=== PATIENT | male | born 1950 | race Caucasian/White ===

== ENCOUNTER 2018-10-16 10:10 | Emergency (ER) | payer OTHER, MEDICARE ==
[2018-10-16] MEDS ORDERED: ASPIRIN 81 MG TABLET, CHEWABLE PO ONE ×2 (10:29→10:35)
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
[2018-10-16 11:18] LABS: ABSOLUTE EOSINOPHILS # (AUTO) 0.1 10^3/uL (0.0-0.6); ABSOLUTE LYMPHOCYTES (AUTO) 1.8 10^3/uL (0.5-4.7); ABSOLUTE MONOCYTES (AUTO) 0.6 10^3/uL (0.1-1.4); ABSOLUTE NEUT (AUTO) 3.7 10^3/uL (1.7-8.2); BASOPHILS % (AUTO) 0.4 % (0-2); EOSINOPHILS % (AUTO) 1.5 % (0-6); HEMATOCRIT 42.8 % (37.9-51.0); HEMOGLOBIN 14.2 g/dL (13.5-17.0); LYMPHOCYTES % (AUTO) 28.3 % (13-45); MEAN CORPUSCULAR HEMOGLOBIN 29.5 pg (27.0-33.4); MEAN CORPUSCULAR HGB CONC 33.2 g/dL (32.0-36.0); MEAN CORPUSCULAR VOLUME 89 fl (80-97); MONOCYTES % (AUTO) 9.7 % (3-13); PLATELET COUNT 196 10^3/uL (150-450); RED BLOOD COUNT 4.83 10^6/uL (4.35-5.55); RED CELL DISTRIBUTION WIDTH 13.2 % (11.5-14.0); SEGMENTED NEUTROPHILS % (AUTO) 60.1 % (42-78); TOTAL CELLS COUNTED % (AUTO) 100 %; WHITE BLOOD COUNT 6.2 10^3/uL (4.0-10.5)
[2018-10-16 11:24] LABS: APPEARANCE,URINE CLEAR; BILIRUBIN,URINE NEGATIVE (NEGATIVE); COLOR,URINE STRAW; GLUCOSE, URINE NEGATIVE (NEGATIVE); KETONES,URINE NEGATIVE (NEGATIVE); LEUKOCYTE ESTERASE,URINE NEGATIVE (NEGATIVE); NITRITE,URINE NEGATIVE (NEGATIVE); PROTEIN,URINE NEGATIVE (NEGATIVE); URINE SPECIFIC GRAVITY 1.004; UROBILINOGEN,URINE NEGATIVE mg/dL (<2.0)
[2018-10-16 11:31] LABS: ALANINE AMINOTRANSFERASE 28 U/L (21-72); ALBUMIN 3.8 g/dL (3.5-5.0); ALKALINE PHOSPHATASE 47 U/L (38-126); ANION GAP 8 (5-19); ASPARTATE AMINO TRANSFERASE 21 U/L (17-59); BILIRUBIN,DIRECT 0.3 mg/dL (0.0-0.4); BILIRUBIN,TOTAL 0.6 mg/dL (0.2-1.3); BLOOD UREA NITROGEN 15 mg/dL (7-20); CALCIUM 9.4 mg/dL (8.4-10.2); CARBON DIOXIDE 29 mmol/L (22-30); CHLORIDE 103 mmol/L (98-107); CREATINE KINASE 86 U/L (55-170); GLUCOSE 70 mg/dL (75-110); POTASSIUM 4.2 mmol/L (3.6-5.0); SODIUM 139.7 mmol/L (137-145); TOTAL PROTEIN 6.5 g/dL (6.3-8.2)
[2018-10-16 11:43] LABS: CREATINE KINASE MB 1.33 ng/mL (<4.55)
[2018-10-16 11:48] LABS: TROPONIN I 0.146 ng/mL
[2018-10-16] MEDS ORDERED: METOPROLOL SUCCINATE 25 MG TAB.SR.24H PO ONE (11:49)
[2018-10-16] MEDS ORDERED: ATORVASTATIN CALCIUM 40 MG TABLET PO ONE (11:51)
[2018-10-16] MEDS ORDERED: HEPARIN SOD (PORCINE) 1,000 UNIT/ML 10 ML VIAL IV ONE (11:52)
[2018-10-16] MEDS ORDERED: HEPARIN SODIUM,PORCINE/D5W 25,000 UNIT/250 ML RTUINJ IV PRN (11:52)
[2018-10-16] MEDS ORDERED: NITROGLYCERIN/D5W 50 MG/250 ML RTUINJ IV PRN (11:57)
[2018-10-16] MEDS ORDERED: NITROGLYCERIN 0.4 MG/TAB 25 TAB/BOTTLE SL PRN (11:57)
[2018-10-16 12:05] LABS: INTERNATIONAL RATION (INR) 0.96; PROTHROMBIN TIME 13.3 SEC (11.4-15.4)
[2018-10-16 12:06] LABS: PARTIAL THROMBOPLASTIN TIME 29.5 SEC (23.5-35.8)
--- NOTE | 2018-10-16 12:06 | RADIOLOGY REPORT (SQ) ---
EXAM DESCRIPTION: CHEST 2 VIEWS COMPLETED DATE/TIME: 10/16/2018 11:38 am REASON FOR STUDY: CHEST PAIN COMPARISON: 10/30/2009 and 02/25/2013 EXAM PARAMETERS: NUMBER OF VIEWS: two views TECHNIQUE: Digital Frontal and Lateral radiographic views of the chest acquired. RADIATION DOSE: NA LIMITATIONS: none FINDINGS: LUNGS AND PLEURA: No opacities, masses or pneumothorax. No pleural effusion. MEDIASTINUM AND HILAR STRUCTURES: No masses or contour abnormalities. HEART AND VASCULAR STRUCTURES: Stable appearance. Mild cardiomegaly. No evidence for failure. BONES: No acute findings. HARDWARE: None in the chest. OTHER: No other significant finding. IMPRESSION: 1. No significant interval changes since the prior examinations. Stable mild cardiomeg juan pablo. No acute findings. TECHNICAL DOCUMENTATION: JOB ID: [id number] [employer]- All Rights Reserved Reading location - IP/workstation name: [email or web address]
[2018-10-16] MEDS ORDERED: NORMAL SALINE 1000 ML 1,000 ML IV ONE (12:14)
[2018-10-16] MEDS ORDERED: MORPHINE SULFATE 10 MG/ML INJ IV ONE (17:38)
--- NOTE | 2018-10-16 17:45 | EKG REPORT ---
SEVERITY:- BORDERLINE ECG - SINUS RHYTHM BORDERLINE T WAVE ABNORMALITIES : Confirmed by: Madison Steinberg MD 16-Oct-2018 17:44:22
--- NOTE | 2018-10-16 17:45 | EKG REPORT ---
SEVERITY:- BORDERLINE ECG - SINUS RHYTHM BORDERLINE T ABNORMALITIES, LATERAL LEADS : Confirmed by: Madison Steinberg MD 16-Oct-2018 17:44:27
[2018-10-16 20:02] VITALS: BP 140/69
== END 2018-10-16 20:15 | disposition short-term general hospital (02) ==
LOC: ER 10:10
DX: I20.0 Unstable angina (principal); R07.9 Chest pain, unspecified; I10 Essential (primary) hypertension; E11.9 Type 2 diabetes mellitus without complications; G89.29 Other chronic pain; M54.9 Dorsalgia, unspecified; Z87.442 Personal history of urinary calculi
CPT/HCPCS: 93005; 96376; 99291; 96375; 96365; 96366; 96368; 36415; 82553; 82550; 85025; 85610; 85730; 80053; 81001; 84484; 83880; 71046; 93010; J1644 ×2; J2270; J3490; J7030

== ENCOUNTER 2019-06-06 14:10 | Inpatient (IN) | payer MEDICARE ==
[2019-06-06 14:47] LABS: ABSOLUTE EOSINOPHILS # (AUTO) 0.1 10^3/uL (0.0-0.6); ABSOLUTE LYMPHOCYTES (AUTO) 1.5 10^3/uL (0.5-4.7); ABSOLUTE MONOCYTES (AUTO) 0.7 10^3/uL (0.1-1.4); ABSOLUTE NEUT (AUTO) 6.4 10^3/uL (1.7-8.2); BASOPHILS % (AUTO) 0.3 % (0-2); EOSINOPHILS % (AUTO) 0.9 % (0-6); HEMATOCRIT 40.8 % (37.9-51.0); HEMOGLOBIN 13.6 g/dL (13.5-17.0); LYMPHOCYTES % (AUTO) 17.3 % (13-45); MEAN CORPUSCULAR HEMOGLOBIN 27.1 pg (27.0-33.4); MEAN CORPUSCULAR HGB CONC 33.2 g/dL (32.0-36.0); MEAN CORPUSCULAR VOLUME 82 fl (80-97); MONOCYTES % (AUTO) 8.3 % (3-13); PLATELET COUNT 227 10^3/uL (150-450); RED CELL DISTRIBUTION WIDTH 14.4 % (11.5-14.0); SEGMENTED NEUTROPHILS % (AUTO) 73.2 % (42-78); TOTAL CELLS COUNTED % (AUTO) 100 %; WHITE BLOOD COUNT 8.8 10^3/uL (4.0-10.5)
[2019-06-06 15:07] LABS: ALBUMIN 4.2 g/dL (3.5-5.0); ALKALINE PHOSPHATASE 62 U/L (38-126); ANION GAP 14 (5-19); ASPARTATE AMINO TRANSFERASE 29 U/L (17-59); BILIRUBIN,DIRECT 0.3 mg/dL (0.0-0.4); BILIRUBIN,TOTAL 0.5 mg/dL (0.2-1.3); BLOOD UREA NITROGEN 14 mg/dL (7-20); CALCIUM 9.8 mg/dL (8.4-10.2); CARBON DIOXIDE 27 mmol/L (22-30); CHLORIDE 98 mmol/L (98-107); CREATINE KINASE 39 U/L (55-170); GLUCOSE 108 mg/dL (75-110); POTASSIUM 3.9 mmol/L (3.6-5.0); TOTAL PROTEIN 7.4 g/dL (6.3-8.2)
[2019-06-06] MEDS ORDERED: ONDANSETRON HCL INJ/PF 4 MG/2 ML SDV IV ONE (15:16)
[2019-06-06] MEDS ORDERED: MORPHINE SULFATE 10 MG/ML INJ IV ONE ×2 (15:17→16:06)
[2019-06-06 15:18] LABS: CREATINE KINASE MB 0.54 ng/mL (<4.55)
[2019-06-06 15:20] LABS: TROPONIN I < 0.012 ng/mL
--- NOTE | 2019-06-06 15:37 | RADIOLOGY REPORT (SQ) ---
EXAM DESCRIPTION: CHEST SINGLE VIEW COMPLETED DATE/TIME: 06/06/2019 3:29 pm REASON FOR STUDY: cp COMPARISON: 10/16/2018 EXAM PARAMETERS: NUMBER OF VIEWS: One view. TECHNIQUE: Single frontal radiographic view of the chest acquired. RADIATION DOSE: NA LIMITATIONS: None. FINDINGS: LUNGS AND PLEURA: No opacities, masses or pneumothorax. No pleural effusion. MEDIASTINUM AND HILAR STRUCTURES: No masses. Contour normal. HEART AND VASCULAR STRUCTURES: Status post CABG. Aortic atherosclerosis. BONES: No acute findings. HARDWARE: None in the chest. OTHER: No other significant finding. IMPRESSION: No evidence of acute cardiopulmonary process. Status post CABG. TECHNICAL DOCUMENTATION: JOB ID: [id number] [employer]- All Rights Reserved Reading location - IP/workstation name: [email or web address]
--- NOTE | 2019-06-06 16:05 | ER Document Report ---
Entered by MARY GRACE GLORIA SCRIBE 06/06/19 1511 Acting as scribe for:CARMEN HEADLEY MD ED General - General Chief Complaint: Chest Pain Stated Complaint: CHEST PAIN Time Seen by Provider: 06/06/19 15:05 Primary Care Provider: CARIE HALL DO [Primary Care Provider] - Follow up as needed Mode of Arrival: Stretcher Information source: Patient, [facility] Records Notes: This 69 year old male patient with a history of extensive cardiac surgeries brought in by EMS presents to the ED today with complaints of upper abdominal pain with radiation to both sides of his back since 8-8:30 this morning. Patient reports that he had leonardo greens and potatoes for dinner last night. Patient denies chest pain at this time. Patient is on Percocet 10 mg up to 4 times daily, and Ridg[place] 10 mg twice daily on a chronic basis for his ankylosing spondylitis. TRAVEL OUTSIDE OF THE [place] IN LAST 30 DAYS: No - Related Data Allergies/Adverse Reactions: No Known Allergies Allergy (Verified 10/16/18 10:32) Past Medical History - General Information source: Patient - Social History Smoking Status: Never Smoker Cigarette use (# per day): No Chew tobacco use (# tins/day): No Smoking Education Provided: No Drug Abuse: None Family History: Reviewed & Not Pertinent Patient has suicidal ideation: No Patient has homicidal ideation: No - Past Medical History Cardiac Medical History: Reports: Hx Hypertension Renal/ Medical History: Reports: Hx Kidney Stones Musculoskeletal Medical History: Reports Other - Ankylosing spondylitis Past Surgical History: Reports: Hx Coronary Artery Bypass Graft - October 2018, Hx Coronary Stent - 3 stents placed on 04/11/19, Hx Orthopedic Surgery - back - Immunizations Hx Diphtheria, Pertussis, Tetanus Vaccination: Yes - Feb 2013 Hx Pneumococcal Vaccination: 03/12/14 Review of Systems - Review of Systems Constitutional: No symptoms reported EENT: No symptoms reported Cardiovascular: See HPI. denies: Chest pain Respiratory: No symptoms reported Gastrointestinal: See HPI, Abdominal pain Genitourinary: No symptoms reported Male Genitourinary: No symptoms reported Musculoskeletal: See HPI, Back pain Skin: No symptoms reported Hematologic/Lymphatic: No symptoms reported Neurological/Psychological: No symptoms reported -: Yes All other systems reviewed and negative Physical Exam - Vital signs Vitals: Pulse Ox 99 06/06/19 14:11 - General General appearance: Anxious, Other - Patient was pacing and unable to sit still or get comfortable - HEENT Head: Normocephalic, Atraumatic Eyes: Normal Pupils: PERRL - Respiratory Respiratory status: No respiratory distress Chest status: Nontender Breath sounds: Normal Chest palpation: Normal - Cardiovascular Rhythm: Regular Heart sounds: Normal auscultation Murmur: No - Abdominal Inspection: Obese, Other - Abdominal skin is cool to touch and mottled appea ring. Distension: No distension Bowel sounds: Hypoactive - decreased bowel sounds Tenderness: Tender - epigastric region and RUQ tenderness with palpation Organomegaly: No organomegaly - Back Back: Normal, Nontender - Extremities General upper extremity: Normal inspection General lower extremity: Normal inspection - Neurological Neuro grossly intact: Yes Cognition: Normal - Psychological Associated symptoms: Anxious - Skin Skin Temperature: Warm Skin Moisture: Dry Skin Color: Normal Course - Re-evaluation Re-evalutation: 06/06/19 16:28 The patient reports that the 2 doses of morphine 5 mg IV has not touched his pain. We will try giving him incremental doses of Dilaudid. 06/06/19 16:38 I reviewed the [place] narcotic database and found the patient takes Percocet 10 mg up to 4 times a day, and [place] 10mg twice daily on a chronic basis. He reports he is on chronic pain management for ankylosing spondylitis. - Vital Signs Vital signs: Temp Pulse Resp BP Pulse Ox 24 H 180/76 H 99 06/06/19 16:00 06/06/19 15:26 06/06/19 16:00 - Laboratory Result Diagrams: 06/06/19 13:40 06/06/19 13:40 Laboratory results interpreted by me: 06/06/19 06/06/19 13:40 13:40 RDW 14.4 H Creatine Kinase 39 L - Diagnostic Test Radiology reviewed: Image reviewed, Reports reviewed - Gallbladder ultrasound shows large gallstone with layering biliary sludge. There is no intrahepatic ductal dilatation, no gallbladder wall thickening, no pericholecystic fluid. Chest x-ray shows prior coronary artery bypass grafting, no acute changes. - EKG Interpretation by Me EKG shows normal: Sinus rhythm, [place], Intervals, QRS Complexes, ST-T Waves Rate: Normal - 51 Rhythm: NSR - Consults Dr. Chacko Time consulted: 06:15 Consulted provider: will come to ER Dr. Wall Time consulted: 06:17 Consulted provider: will come to ER Discharge - Discharge Clinical Impression: Right upper quadrant abdominal pain with calculus of gallbladder present on ultrasound Cholelithiasis Qualifiers: Cholelithiasis location: gallbladder Cholecystitis presence: without cholecystitis Biliary obstruction: without biliary obstruction Qualified Code(s): K80.20 - Calculus of gallbladder without cholecystitis without obstruction Coronary artery disease Qualifiers: Coronary Disease-Associated Artery/Lesion type: unspecified vessel or lesion type [place] vs. transplanted heart: [place] heart Associated angina: without angina Qualified Code(s): I25.10 - Atherosclerotic heart disease of [place] coronary artery without angina pectoris Hypertension Qualifiers: Hypertension type: essential hypertension Qualified Code(s): I10 - Essential (primary) hypertension Ankylosing spondylitis Qualifiers: Ankylosing spondylitis location: unspecified site of spine Qualified Code(s): M45.9 - Ankylosing spondylitis of unspecified sites in spine Chronic pain Qualifiers: Chronic pain type: chronic pain syndrome Qualified Code(s): G89.4 - Chronic pain syndrome Condition: Stable Disposition: ADMITTED INPATIENT Admitting Provider: Mae (Hospitalist) Unit Admitted: I[facility] Referrals: CARIE HALL DO [Primary Care Provider] - Follow up as needed Scribe Attestation: 06/06/19 16:41 I personally performed the services described in the documentation, reviewed and edited the documentation which was dictated to the scribe in my presence, and it accurately records my words and actions. I personally performed the services described in the documentation, reviewed and edited the documentation which was dictated to the scribe in my presence, and it accurately records my words and actions.
[2019-06-06] MEDS ORDERED: METOCLOPRAMIDE HCL INJ/PF 10 MG/2 ML SDV IV ONE (16:06)
--- NOTE | 2019-06-06 16:26 | EKG REPORT ---
SEVERITY:- NORMAL ECG - SINUS RHYTHM : Confirmed by: Madison Steinberg MD 06-Jun-2019 16:25:10
[2019-06-06] MEDS ORDERED: HYDROMORPHONE HCL INJ/PF 2 MG/ML AMPULE IV ONE ×2 (16:28→18:26)
[2019-06-06 16:29] LABS: C-REACTIVE PROTEIN < 5.0 mg/L (<10.0)
--- NOTE | 2019-06-06 17:36 | RADIOLOGY REPORT (SQ) ---
EXAM DESCRIPTION: U/S ABDOMEN LIMITED W/O DOP COMPLETED DATE/TIME: 06/06/2019 5:25 pm REASON FOR STUDY: RUQ abd pain COMPARISON: None. TECHNIQUE: Dynamic and static grayscale images acquired of the abdomen and recorded on PACS. Additio nal selected color Doppler and spectral images recorded. LIMITATIONS: None. FINDINGS: PANCREAS: Largely obscured by bowel gas. No gross abnormality. LIVER: No masses. Echotexture normal. LIVER VASCULATURE: Normal directional flow of the main portal vein and hepatic veins. GALLBLADDER: 3.6 cm shadowing gallstone. Layering biliary sludge. No wall thickening or pericholecy stic fluid. ULTRASOUND-DETECTED FLORES'S SIGN: Negative. INTRAHEPATIC DUCTS AND COMMON DUCT: CBD and intrahepatic ducts normal caliber. No filling defects. INFERIOR VENA CAVA: Normal flow. AORTA: No aneurysm of the proximal abdominal aorta. RIGHT KIDNEY: Normal size. Normal echogenicity. No solid or suspicious masses. No hydronephrosis. No calcifications. PERITONEAL AND RIGHT PLEURAL SPACE: No ascites or effusions. OTHER: No other significant findings. IMPRESSION: Cholelithiasis/biliary sludge without evidence of acute cholecystitis. TECHNICAL DOCUMENTATION: JOB ID: [id number] [employer]- All Rights Reserved Reading location - IP/workstation name: [email or web address]
--- NOTE | 2019-06-06 18:56 | PDOC CONSULTATION ---
Consultation Consult Date: 06/06/19 Attending physician:: CARMEN HEADLEY Provider Consulted: RILEY SANCHEZ Consult reason:: Symptomatic cholelithiasis History of Present Illness Admission Date/PCP: CARIE HALL DO History of Present Illness: KAVITHA CULP JR is a 69 year old male Who presents to the emergency department via ground rescue complaining of acute onset last night of abdominal pain. He ate leonardo greens for dinner. This is associated with back pain, radiating to both flanks and anorexia. No vomiting. He was seen in the emergency department where he was found to have acute substernal and epigastric chest pain. He ruled out for an acute myocardial event. He was tender in the right upper quadrant and had a gallbladder ultrasound which showed cholelithiasis. The patient remained hemodynamically stable. Internal medicine was consulted and patient was admitted to the hospitalist service. Surgery was consulted for management of gallstones. Past Medical History Past Medical History: History of stroke, history of myocardial infarction, coronary artery disease, ankylosing spondylitis, chronic pain syndrome, chronic narcotic dependency Cardiac Medical History: Reports: Hypertension Musculoskeltal Medical History: Reports: Arthritis, Other - Ankylosing spondylitis Past Surgical History Past Surgical History: Coronary artery bypass grafting, [facility] October 2018; coronary artery stent placement, Dr. Steen, [place], March 2019 Past Surgical History: Reports: Coronary Artery Bypass Graft - October 2018, Coronary Stent - 3 stents placed on 04/11/19, Orthopedic Surgery - back Social History Information Source: Patient Smoking Status: Never Smoker Electronic Cigarette use?: No Frequency of Alcohol Use: None Hx Recreational Drug Use: No Hx Prescription Drug Abuse: No Family History Family History: None, Reviewed & Not Pertinent Parental Family History Reviewed: No Children Family History Reviewed: No Sibling(s) Family History Reviewed.: No Medication/Allergy Allergies/Adverse Reactions: No Known Allergies Allergy (Verified 10/16/18 10:32) Review of Systems Constitutional: PRESENT: as per HPI Eyes: ABSENT: visual disturbances Ears: ABSENT: hearing changes Cardiovascular: PRESENT: as per HPI Gastrointestinal: PRESENT: as per HPI, other - Denies change in bowel habits Genitourinary: ABSENT: dysuria, hematuria Musculoskeletal: PRESENT: back pain Physical Exam Vital Signs: Temp Pulse Resp BP Pulse Ox 24 H 180/76 H 99 06/06/19 16:00 06/06/19 15:26 12/26/19 16:00 Intake & Output 06/05/19 06/06/19 06/07/19 06:59 06:59 06:59 Weight 86.5 kg General appearance: PRESENT: other - Anxious Head exam: PRESENT: normocephalic Eye exam: PRESENT: EOMI Mouth exam: PRESENT: dry mucosa Neck exam: PRESENT: full ROM Respiratory exam: PRESENT: rhonchi Cardiovascular exam: PRESENT: RRR Pulses: PRESENT: normal carotid pulses, normal radial pulses, normal femoral pulses, other - No edema GI/Abdominal exam: PRESENT: diminished bowel sounds, other - Scars chest and abdominal wall consistent with previous surgery; tender right upper quadrant with guarding to mild palpation Extremities exam: PRESENT: pedal edema Musculoskeletal exam: PRESENT: full ROM Neurological exam: PRESENT: oriented to person, oriented to place, oriented to time, oriented to situation Psychiatric exam: PRESENT: anxious Skin exam: PRESENT: dry Results Laboratory Results: 06/06/19 13:40 06/06/19 13:40 06/06/19 06/06/19 06/06/19 13:40 13:40 13:40 WBC 8.8 RBC 5.00 Hgb 13.6 Hct 40.8 MCV 82 MCH 27.1 MCHC 33.2 RDW 14.4 H Plt Count 227 Seg Neutrophils % 73.2 Sodium 138.9 Potassium 3.9 Chloride 98 Carbon Dioxide 27 Anion Gap 14 BUN 14 Creatinine 0.91 Est GFR ( Amer) > 60 Glucose 108 Calcium 9.8 Total Bilirubin 0.5 AST 29 Alkaline Phosphatase 62 C-Reactive Protein < 5.0 Total Protein 7.4 Albumin 4.2 Lipase 79.5 06/06/19 06/06/19 13:40 13:40 Creatine Kinase 39 L CK-MB (CK-2) 0.54 Troponin I < 0.012 Impressions: Chest X-Ray 06/06/19 00:00 IMPRESSION: No evidence of acute cardiopulmonary process. Status post CABG. Abdomen Ultrasound 06/06/19 15:17 IMPRESSION: Cholelithiasis/biliary sludge without evidence of acute cholecystitis. Assessment & Plan - Diagnosis (1) Cholelithiasis Qualifiers: Cholelithiasis location: gallbladder Cholecystitis presence: without cholecystitis Biliary obstruction: without biliary obstruction Qualified Code(s): K80.20 - Calculus of gallbladder without cholecystitis without obstruction Is this a current diagnosis for this admission?: Yes Plan: Impression: Symptomatic cholelithiasis with cholecystitis; no evidence of sepsis; Patient with multiple chronic medical problems, chronic pain syndrome, recent coronary artery stents on Plavix Recommendations: 1. We have advised admission to the medical service with surgery consulting. Patient will be kept on clear liquids, and Plavix held. 2. Patient's cardiac condition appears to be stable; we will have him evaluated and risk assessed for a perioperative myocardial events; this was explained to the patient and his family. 3. Recommend patient undergo interval cholecystectomy while hospitalized this admission by acute care surgeon collection development librarian this weekend. The above discussed with Dr. Wall (2) Anticoagulation adequate Is this a current diagnosis for this admission?: Yes (3) Ankylosing spondylitis Qualifiers: Ankylosing spondylitis location: unspecified site of spine Qualified Code(s ): M45.9 - Ankylosing spondylitis of unspecified sites in spine Is this a current diagnosis for this admission?: Yes (4) Chronic pain Qualifiers: Chronic pain type: chronic pain syndrome Qualified Code(s): G89.4 - Chronic pain syndrome Is this a current diagnosis for this admission?: Yes (5) Coronary artery disease Qualifiers: Coronary Disease-Associated Artery/Lesion type: unspecified vessel or lesion type [place] vs. transplanted heart: [place] heart Associated angina: without angina Qualified Code(s): I25.10 - Atherosclerotic heart disease of [place] coronary artery without angina pectoris (6) Hypertension Qualifiers: Hypertension type: essential hypertension Qualified Code(s): I10 - Essential (primary) hypertension Is this a current diagnosis for this admission?: Yes (7) Essential hypertension Is this a current diagnosis for this admission?: Yes (8) Osteoarthritis Is this a current diagnosis for this admission?: Yes - Time Time Spent: 50 to 70 Minutes Smoking Cessation Education: over 10 minutes Medications reviewed and adjusted accordingly: Yes Anticipated discharge: Home - Inpatient Certification Based on my medical assessment, after consideration of the patient's comorbidities, presenting symptoms, or acuity I expect that the services needed warrant INPATIENT care.: Yes I certify that my determination is in accordance with my understanding of Medicare's requirements for reasonable and necessary INPATIENT services [42 CFR 412.3e].: Yes Medical Necessity: Need For IV Fluids, Need for Pain Control, Need for IV Anti biotics, Need for Surgery
[2019-06-06] MEDS ORDERED: ACETAMINOPHEN 325 MG TABLET PO PRN (19:18)
[2019-06-06] MEDS ORDERED: MAG HYDROX/AL HYDROX/SIMETH SUSP 30 ML UDCUP PO PRN (19:18)
[2019-06-06] MEDS ORDERED: MAGNESIUM HYDROXIDE SUSP 30 ML UDCUP PO PRN (19:18)
[2019-06-06] MEDS ORDERED: NITROGLYCERIN 0.4 MG/TAB 25 TAB/BOTTLE SL PRN (19:25)
[2019-06-06] MEDS ORDERED: HYDROMORPHONE HCL INJ/PF 2 MG/ML AMPULE IV PRN (19:29)
--- NOTE | 2019-06-06 19:31 | PDOC H&P ---
History of Present Illness Admission Date/PCP: 06/06/19 18:42 CARIE HALL DO Patient complains of: Severe abdominal pain with nausea and vomiting History of Present Illness: KAVITHA CULP JR is a 69 year old male with a history of coronary artery disease. He had an acute myocardial infarction with subsequent CABG surgery at [facility] in October 2018. He recently had cardiac stenting April 11 at [facility]. He has a history of ankylosing spondylitis, hypertension, gastroesophageal reflux disease and prostatic hyperplasia. He states that at approximately 8:00 this morning he had acute onset of severe pain mostly in the epigastrium. It was associated with nausea and vomiting. It did not radiate. He states the pain remained severe throughout the day. He had no relief. Because of the pain, nausea and vomiting he proceeded to the emergency department. Imaging revealed a 3.6 cm cholelithiasis as well as sludge in the gallbladder. There was no gallbladder wall thickening, distention of the gallbladder or distention of the biliary ducts. Because of his cardiac issues and recent stenting he was referred to the hospital service for admission with general surgery consulting. Past Medical History Cardiac Medical History: Reports: Coronary Artery Disease, Hypertension Pulmonary Medical History: Denies: Asthma, Chronic Obstructive Pulmonary Disease (COPD) EENT Medical History: Denies: Cataracts, Eyes, Ears, Nose Neurological Medical History: Denies: Hemorrhagic CVA, Ischemic CVA, Multiple Sclerosis Endocrine Medical History: Denies: Diabetes Mellitus Type 2, Hypothyroidism Renal/ Medical History: Denies: Chronic Kidney Disease, Nephrolithiasis Malignancy Medical History: Reports: None GI Medical History: Reports: Gastroesophageal Reflux Disease Musculoskeltal Medical History: Reports: Arthritis, Other - Ankylosing spondylitis Skin Medical History: Denies: Eczema, Psoriasis Psychiatric Medical History: Denies: Alcohol Dependency, Dementia, Depression, General Anxiety Disorder, Substance Abuse, Tobacco Dependency Traumatic Medical History: Reports: None Hematology: Denies: Anemia, Bleeding Tendencies, Heparin Induced Thrombocytopenia Infectious Medical History: Reports: None Past Surgical History Past Surgical History: Reports: Coronary Artery Bypass Graft - October 2018, Coronary Stent - 3 stents placed on 04/11/19, Orthopedic Surgery - back Social History Information Source: Patient, Outside Facility Records Lives with: Family Smoking Status: Former Smoker Electronic Cigarette use?: No Frequency of Alcohol Use: None Hx Recreational Drug Use: No Hx Prescription Drug Abuse: No - Advance Directive Resuscitation Status: Full Code Surrogate healthcare decision maker:: Patient's is the primary decision maker Family History Family History: CAD, DM, Hypertension, Malignancy Parental Family History Reviewed: Yes Children Family History Reviewed: Yes Sibling(s) Family History Reviewed.: Yes Medication/Allergy Home Medications: Aspirin [Adult Low Dose Aspirin EC] 81 mg PO DAILY 06/06/19 Clopidogrel Bisulfate [Plavix 75 mg Tablet] 75 mg PO DAILY 06/06/19 Etanercept [Enbrel Sureclick] 50 mg SQ FR@1000 06/06/19 Hydrochlorothiazide [Hydrodiuril 12.5 mg Tablet] 12.5 mg PO DAILY 06/06/19 Hydrocodone Bit/Acetaminophen [Hydrocodon-Acetaminophn 10-325] 1 each PO Q12HP PRN 06/06/19 Isosorbide Mononitrate [Imdur 30 mg Tablet.er] 30 mg PO DAILY 06/06/19 Lisinopril [Prinivil 40 mg Tablet] 40 mg PO DAILY 06/06/19 Metoprolol Tartrate [Lopressor 25 mg Tablet] 25 mg PO Q12 06/06/19 Nitroglycerin [Nitrostat 0.4 mg (1/150 Gr) Tabs 25/Bottle] 1 tab SL Q5MP PRN 06/06/19 Omeprazole Magnesium [Prilosec Otc] 40 mg PO DAILY 06/06/19 Potassium Chloride [Klor-Con 10 Meq Tablet ER] 20 meq PO DAILY 06/06/19 Pravastatin Sodium [Pravachol] 40 mg PO DAILY 06/06/19 Tamsulosin HCl [Flomax] 0.4 mg PO DAILY 06/06/19 Trazodone HCl [Desyrel 50 mg Tablet] 50 mg PO QHS 06/06/19 Allergies/Adverse Reactions: No Known Allergies Allergy (Verified 10/16/18 10:32) Review of Systems All systems: reviewed and no additional remarkable complaints except as stated Gastrointestinal: PRESENT: abdominal pain, nausea, vomiting Genitourinary: PRESENT: nocturia Musculoskeletal: PRESENT: back pain Physical Exam Vital Signs: Temp Pulse Resp BP Pulse Ox 24 H 180/76 H 99 06/06/19 16:00 06/06/19 15:26 06/06/19 16:00 Intake & Output 06/05/19 06/06/19 06/07/19 06:59 06:59 06:59 Weight 86.5 kg General appearance: PRESENT: no acute distress, cooperative, well-developed, well-nourished Head exam: PRESENT: atraumatic, normocephalic Eye exam: PRESENT: conjunctiva pink, EOMI, PERRLA. ABSENT: scleral icterus Ear exam: PRESENT: normal external ear exam. ABSENT: bleeding, drainage Mouth exam: PRESENT: moist, tongue midline Teeth exam: ABSENT: poor dentation Throat exam: ABSENT: post pharyngeal erythema Neck exam: PRESENT: full ROM. ABSENT: carotid bruit, JVD, lymphadenopathy Respiratory exam: PRESENT: clear to auscultation betzaida, symmetrical, unlabored. ABSENT: accessory muscle use, rales, rhonchi, tachypnea, wheezes Cardiovascular exam: PRESENT: RRR, +S1, +S2, systolic murmur - 1-2 over 6 GI/Abdominal exam: PRESENT: diminished bowel sounds, soft, tenderness - Mostly in epigastric area. ABSENT: distended Rectal exam: PRESENT: deferred Gentrourinary exam: ABSENT: indwelling catheter Extremities exam: PRESENT: full ROM. ABSENT: joint swelling, pedal edema, tenderness Musculoskeletal exam: PRESENT: full ROM, normal inspection. ABSENT: deformity Neurological exam: PRESENT: alert, awake, oriented to person, oriented to place, oriented to time, oriented to situation, CN II-XII grossly intact. ABSENT: motor sensory deficit Psychiatric exam: PRESENT: appropriate affect, normal mood. ABSENT: agitated, anxious Focused psych exam: ABSENT: delusional, restlessness Skin exam: PRESENT: dry, normal color, warm. ABSENT: erythema, rash Results Laboratory Results: 06/06/19 13:40 06/06/19 13:40 06/06/19 06/06/19 06/06/19 13:40 13:40 13:40 WBC 8.8 RBC 5.00 Hgb 13.6 Hct 40.8 MCV 82 MCH 27.1 MCHC 33.2 RDW 14.4 H Plt Count 227 Seg Neutrophils % 73.2 Sodium 138.9 Potassium 3.9 Chloride 98 Carbon Dioxide 27 Anion Gap 14 BUN 14 Creatinine 0.91 Est GFR ( Amer) > 60 Glucose 108 Calcium 9.8 Total Bilirubin 0.5 AST 29 Alkaline Phosphatase 62 C-Reactive Protein < 5.0 Total Protein 7.4 Albumin 4.2 Lipase 79.5 06/06/19 06/06/19 13:40 13:40 Creatine Kinase 39 L CK-MB (CK-2) 0.54 Troponin I < 0.012 Impressions: Chest X-Ray 06/06/19 00:00 IMPRESSION: No evidence of acute cardiopulmonary process. Status post CABG. Abdomen Ultrasound 06/06/19 15:17 IMPRESSION: Cholelithiasis/biliary sludge without evidence of acute cholecystitis. Assessment and Plan - Diagnosis (1) Right upper quadrant abdominal pain with calculus of gallbladder present on ultrasound Is this a current diagnosis for this admission?: Yes Plan: 06/06/2019-patient presented with abdominal pain, nausea and vomiting. 3.6 cm gallstone identified by ultrasound. Surgery is consulting. Plan is for cholecystectomy. Dilaudid for pain. (2) Cholelithiasis Qualifiers: Cholelithiasis location: gallbladder Cholecystitis presence: without cholecystitis Biliary obstruction: without biliary obstruction Qualified Code(s): K80.20 - Calculus of gallbladder without cholecystitis without obstruction Is this a current diagnosis for this admission?: Yes Plan: 06/06/2019-planned for cholecystectomy. (3) Vomiting Qualifiers: Vomiting type: unspecified Vomiting Intractability: non-intractable Nausea presence: with nausea Qualified Code(s): R11.2 - Nausea with vomiting, unspecified Is this a current diagnosis for this admission?: Yes Plan: 06/06/2019-secondary to cholelithiasis. Resolved with pain medications and antiemetics. (4) Coronary artery disease Qualifiers: Coronary Disease-Associated Artery/Lesion type: [place] artery [place] vs. transplanted heart: [place] heart Associated angina: without angina Qualified Code(s): I25.10 - Atherosclerotic heart disease of [place] coronary artery without angina pectoris Is this a current diagnosis for this admission?: Yes Plan: 06/06/2019-patient had bypass surgery after myocardial infarction in October. He had a coronary artery stent placed in March. He has been stable and asymptomatic. He is slightly higher risk for surgery however with the recent stenting and cardiac catheterization he has no acute coronary symptoms at this time. We will continue his current medications (hydrochlorothiazide, Imdur, lisinopril, metoprolol and potassium) with the exception of Plavix. The patient is cleared for surgery. (5) Essential hypertension Is this a current diagnosis for this admission?: Yes Plan: 06/06/2019-as noted above we will continue his current medication regimen. His blood pressure was elevated and so I will give his hydrochlorothiazide and a small dose of lisinopril at this time and monitor him on telemetry. We will adjust his medications based on his vital signs. (6) Gastroesophageal reflux Qualifiers: Esophagitis presence: without esophagitis Qualified Code(s): K21.9 - Gastro-esophageal reflux disease without esophagitis Is this a current diagnosis for this admission?: Yes Plan: 06/06/2019-substitute pantoprazole for his omeprazole. (7) Benign prostatic hyperplasia with nocturia Is this a current diagnosis for this admission?: Yes Plan: 06/06/2019-continue Flomax 0.4 mg daily. (8) Ankylosing spondylitis Qualifiers: Ankylosing spondylitis location: unspecified site of spine Qualified Code(s): M45.9 - Ankylosing spondylitis of unspecified sites in spine Is this a current diagnosis for this admission?: Yes Plan: 06/06/2019-the patient takes Enbrel 50 mg by subcutaneous injection weekly on Mondays. Hopefully he will be home by Monday. As needed pain medications will be available. (9) Chronic pain Qualifiers: Chronic pain type: chronic pain syndrome Qualified Code(s): G89.4 - Chronic pain syndrome Is this a current diagnosis for this admission?: Yes Plan: 06/06/2019-the patient has chronic back pain. As needed analgesia will be available. This can be given for his abdominal pain or back pain. - Plan Summary Summary: 06/06/2019-patient presents with large (greater than 3 cm) gallstone. There does not appear to be any cholecystitis or obstruction. The gallstone was likely temporarily lodged as reflected by the patient's abdominal pain, nausea and vomiting. Dr. Chacko has seen the patient. We will stop his Plavix. We will keep him on a clear liquid diet. We will continue his medication regimen with the exception of Plavix. He will likely have a cholecystectomy on Monday or Monday. Because there is no evidence of acute cholecystitis I will not start antibiotics at this time. - Time Time Spent with patient: 35 or more minutes Medications reviewed and adjusted accordingly: Yes Anticipated discharge: Home - Inpatient Certification Based on my medical assessment, after consideration of the patient's comorbidities, presenting symptoms, or acuity I expect that the services needed warrant INPATIENT care.: Yes I certify that my determination is in accordance with my understanding of Medicare's requirements for reasonable and necessary INPATIENT services [42 CFR 412.3e].: Yes Medical Necessity: Need For Continuous Telemetry Monitoring, Need for Pain Control, Need for Surgery Post Hospital Care: 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
--- NOTE | 2019-06-06 19:57 | ADVANCED CARE ---
- Diagnosis (1) Right upper quadrant abdominal pain with calculus of gallbladder present on ultrasound Diagnosis Current: Yes (2) Cholelithiasis Diagnosis Current: Yes (3) Vomiting Diagnosis Current: Yes (4) Coronary artery disease Diagnosis Current: Yes (5) Essential hypertension Diagnosis Current: Yes (6) Gastroesophageal reflux Diagnosis Current: Yes (7) Benign prostatic hyperplasia with nocturia Diagnosis Current: Yes (8) Ankylosing spondylitis Diagnosis Current: Yes (9) Chronic pain Diagnosis Current: Yes Attendance: Discussion was had with the patient and his . Resuscitation Status: Full Code Discussion: In light of the patient's recent myocardial infarction with open heart surgery and need for a coronary stent within the last 2 months we discussed treatment options in the event of a catastrophic illness. I reviewed the living will form in the admissions packet. I pointed out the ability to designate decision- makers. I spent the majority of time reviewing the section where a patient can determine the extent of treatment desired before altering the treatment plan. The patient's went through this with her mother who from cancer. At this point the patient is a full code. I did asked them to discuss his wishes with regard to catastrophic illness. Care Planning Goals: To further discuss treatment planning in the event of a catastrophic illness. To document his wishes on a living will form. Document(s) Completed: None Time Spent: 20 minutes
[2019-06-06] MEDS ORDERED: HYDROCHLOROTHIAZIDE 12.5 MG TABLET PO ONE (20:00)
[2019-06-06] MEDS ORDERED: LISINOPRIL 10 MG TABLET PO ONE (20:00)
[2019-06-06 20:53] LABS: APPEARANCE,URINE CLEAR; BILIRUBIN,URINE NEGATIVE (NEGATIVE); COLOR,URINE YELLOW; GLUCOSE, URINE NEGATIVE (NEGATIVE); KETONES,URINE NEGATIVE (NEGATIVE); LEUKOCYTE ESTERASE,URINE NEGATIVE (NEGATIVE); NITRITE,URINE NEGATIVE (NEGATIVE); PROTEIN,URINE NEGATIVE (NEGATIVE); UROBILINOGEN,URINE NEGATIVE mg/dL (<2.0)
[2019-06-06] MEDS: HEPARIN SOD (PORCINE) 5,000 UNIT/ML 1 ML VIAL SUBCUT SCH (21:50)
[2019-06-06] MEDS: TRAZODONE HCL 50 MG TABLET PO SCH (21:50)
[2019-06-06] MEDS: ATORVASTATIN CALCIUM 40 MG TABLET PO SCH (21:50)
[2019-06-06] MEDS ORDERED: METOPROLOL TARTRATE 25 MG TABLET PO SCH (22:00)
[2019-06-06] MEDS: LORAZEPAM INJ 2 MG/1 ML VIAL IV PRN (22:09)
[2019-06-07] MEDS: HEPARIN SOD (PORCINE) 5,000 UNIT/ML 1 ML VIAL SUBCUT SCH ×2 (06:22→13:44)
[2019-06-07] MEDS: PANTOPRAZOLE SODIUM 40 MG TABLET.DR PO SCH (06:22)
[2019-06-07] MEDS ORDERED: SUCCINYLCHOLINE CHLORIDE INJ 200 MG/10 ML VIAL ONE (08:55)
[2019-06-07] MEDS ORDERED: ROCURONIUM BROMIDE INJ 50 MG/5 ML VIAL IV ONE (08:55)
[2019-06-07] MEDS ORDERED: METOPROLOL TARTRATE 25 MG TABLET PO SCH (09:13)
--- NOTE | 2019-06-07 09:18 | PDOC PROGRESS REPORT ---
Subjective Progress Note for:: 06/07/19 Subjective:: The patient is quite comfortable today. He is awake and alert. He has no complaints of abdominal pain, chest pain or difficulty breathing. He is tolerating clear liquid diet. Reason For Visit: CHOLELITHIASIS/CHOLECYSTITIS,CORONARY ARTERY DISEA Physical Exam Vital Signs: Temp Pulse Resp BP Pulse Ox 99.2 F 66 17 105/48 L 94 06/07/19 07:36 06/07/19 07:36 06/07/19 07:36 06/07/19 07:36 06/07/19 07:36 Intake & Output 06/06/19 06/07/19 06/08/19 06:59 06:59 06:59 Intake Total 150 Output Total 0 Balance 150 Weight 83.8 kg General appearance: PRESENT: no acute distress, cooperative, well-developed, well-nourished Head exam: PRESENT: atraumatic, normocephalic Eye exam: PRESENT: conjunctiva pink. ABSENT: scleral icterus Ear exam: PRESENT: normal external ear exam. ABSENT: bleeding, drainage Mouth exam: PRESENT: moist, tongue midline Neck exam: PRESENT: full ROM. ABSENT: JVD, tracheal deviation Respiratory exam: PRESENT: clear to auscultation betzaida, symmetrical, unlabored. ABSENT: accessory muscle use, rales, rhonchi, tachypnea, wheezes Cardiovascular exam: PRESENT: RRR, +S1, +S2, systolic murmur - 2/6. ABSENT: t achycardia GI/Abdominal exam: PRESENT: normal bowel sounds, soft. ABSENT: distended, guarding, tenderness Rectal exam: PRESENT: deferred Gentrourinary exam: ABSENT: indwelling catheter Extremities exam: ABSENT: joint swelling, pedal edema Musculoskeletal exam: PRESENT: ambulatory, full ROM, normal inspection Neurological exam: PRESENT: alert, awake, oriented to person, oriented to place, oriented to time, oriented to situation, CN II-XII grossly intact Psychiatric exam: PRESENT: appropriate affect, normal mood. ABSENT: agitated, anxious Focused psych exam: ABSENT: delusional, restlessness Skin exam: PRESENT: dry, normal color, warm. ABSENT: rash Results Laboratory Results: 06/06/19 13:40 06/06/19 13:40 06/06/19 06/06/19 06/06/19 13:40 13:40 13:40 WBC 8.8 RBC 5.00 Hgb 13.6 Hct 40.8 MCV 82 MCH 27.1 MCHC 33.2 RDW 14.4 H Plt Count 227 Seg Neutrophils % 73.2 Sodium 138.9 Potassium 3.9 Chloride 98 Carbon Dioxide 27 Anion Gap 14 BUN 14 Creatinine 0.91 Est GFR ( Amer) > 60 Glucose 108 Calcium 9.8 Total Bilirubin 0.5 AST 29 Alkaline Phosphatase 62 C-Reactive Protein < 5.0 Total Protein 7.4 Albumin 4.2 Lipase 79.5 Urine Color Urine Appearance Urine pH Ur Specific [place] Urine Protein Urine Glucose (UA) Urine Ketones Urine Blood Urine Nitrite Ur Leukocyte Esterase Urine WBC (Auto) Urine RBC (Auto) 06/06/19 20:29 WBC RBC Hgb Hct MCV MCH MCHC RDW Plt Count Seg Neutrophils % Sodium Potassium Chloride Carbon Dioxide Anion Gap BUN Creatinine Est GFR ( Amer) Glucose Calcium Total Bilirubin AST Alkaline Phosphatase C-Reactive Protein Total Protein Albumin Lipase Urine Color YELLOW Urine Appearance CLEAR Urine pH 5.0 Ur Specific [place] 1.010 Urine Protein NEGATIVE Urine Glucose (UA) NEGATIVE Urine Ketones NEGATIVE Urine Blood SMALL H Urine Nitrite NEGATIVE Ur Leukocyte Esterase NEGATIVE Urine WBC (Auto) 0 Urine RBC (Auto) 1 06/06/19 06/06/19 06/06/19 13:40 13:40 18:35 Creatine Kinase 39 L CK-MB (CK-2) 0.54 Troponin I < 0.012 < 0.012 Impressions: Chest X-Ray 06/06/19 00:00 IMPRESSION: No evidence of acute cardiopulmonary process. Status post CABG. Abdomen Ultrasound 06/06/19 15:17 IMPRESSION: Cholelithiasis/biliary sludge without evidence of acute cholecysti tis. Assessment and Plan - Diagnosis (1) Right upper quadrant abdominal pain with calculus of gallbladder present on ultrasound Is this a current diagnosis for this admission?: Yes Plan: 06/06/2019-patient presented with abdominal pain, nausea and vomiting. 3.6 cm gallstone identified by ultrasound. Surgery is consulting. Plan is for cholecystectomy. Dilaudid for pain. 06/07/2019-tolerating clear liquid diet. No more vomiting. The plan is for cholecystectomy tomorrow. (2) Cholelithiasis Qualifiers: Cholelithiasis location: gallbladder Cholecystitis presence: without cholecystitis Biliary obstruction: without biliary obstruction Qualified Code(s): K80.20 - Calculus of gallbladder without cholecystitis without obstruction Is this a current diagnosis for this admission?: Yes Plan: 06/06/2019-planned for cholecystectomy. 06/07/2019-plan as above. Should maintain low-fat diet for cardiac reasons as well as status post cholecystectomy. (3) Vomiting Qualifiers: Vomiting type: unspecified Vomiting Intractability: non-intractable Nausea presence: with nausea Qualified Code(s): R11.2 - Nausea with vomiting, unspecified Is this a current diagnosis for this admission?: Yes Plan: 06/06/2019-secondary to cholelithiasis. Resolved with pain medications and antiemetics. 06/07/2019-resolved at this time (4) Coronary artery disease Qualifiers: Coronary Disease-Associated Artery/Lesion type: [place] artery [place] vs. transplanted heart: [place] heart Associated angina: without angina Qualified Code(s): I25.10 - Atherosclerotic heart disease of [place] coronary artery without angina pectoris Is this a current diagnosis for this admission?: Yes Plan: 06/06/2019-patient had bypass surgery after myocardial infarction in October. He h ad a coronary artery stent placed in March. He has been stable and asymptomatic. He is slightly higher risk for surgery however with the recent stenting and cardiac catheterization he has no acute coronary symptoms at this time. We will continue his current medications (hydrochlorothiazide, Imdur, lisinopril, metoprolol and potassium) with the exception of Plavix. The patient is cleared for surgery. 06/07/2019-still holding Plavix. No symptoms of acute coronary syndrome at this time. Continue current management. (5) Essential hypertension Is this a current diagnosis for this admission?: Yes Plan: 06/06/2019-as noted above we will continue his current medication regimen. His blood pressure was elevated and so I will give his hydrochlorothiazide and a small dose of lisinopril at this time and monitor him on telemetry. We will adjust his medications based on his vital signs. 06/07/2019-continue current medications. Monitor for hypo-or hypertension and adjust medications accordingly. There are parameters on antihypertensive medications. (6) Gastroesophageal reflux Qualifiers: Esophagitis presence: without esophagitis Qualified Code(s): K21.9 - Gastro-esophageal reflux disease without esophagitis Is this a current diagnosis for this admission?: Yes Plan: 06/06/2019-substitute pantoprazole for his omeprazole. 06/07/2019-continue proton pump inhibitor. (7) Benign prostatic hyperplasia with nocturia Is this a current diagnosis for this admission?: Yes Plan: 06/06/2019-continue Flomax 0.4 mg daily. 06/07/2019-continue Flomax (8) Ankylosing spondylitis Qualifiers: Ankylosing spondylitis location: unspecified site of spine Qualified Code(s): M45.9 - Ankylosing spondylitis of unspecified sites in spine Is this a current diagnosis for this admission?: Yes Plan: 06/06/2019-the patient takes Enbrel 50 mg by subcutaneous injection weekly on Mondays. Hopefully he will be home by Monday. As needed pain medications will be available. 06/07/2019-resume Enbrel after discharge. Continue current pain management. We should avoid NSAIDs for cardiac reasons. (9) Chronic pain Qualifiers: Chronic pain type: chronic pain syndrome Qualified Code(s): G89.4 - Chronic pain syndrome Is this a current diagnosis for this admission?: Yes Plan: 06/06/2019-the patient has chronic back pain. As needed analgesia will be available. This can be given for his abdominal pain or back pain. [id number] this morning. Continue as needed medication. - Plan Summary Summary: 06/06/2019-patient presents with large (greater than 3 cm) gallstone. There does not appear to be any cholecystitis or obstruction. The gallstone was likely temporarily lodged as reflected by the patient's abdominal pain, nausea and vomiting. Dr. Chacko has seen the patient. We will stop his Plavix. We will keep him on a clear liquid diet. We will continue his medication regimen with the exception of Plavix. He will likely have a cholecystectomy on Monday or Monday. Because there is no evidence of acute cholecystitis I will not start antibiotics at this time. - Time Time Spent with patient: Less than 15 minutes Medications reviewed and adjusted accordingly: Yes Anticipated discharge: Home
[2019-06-07] MEDS: DOCUSATE SODIUM 100 MG CAPSULE PO SCH ×2 (09:40→17:23)
[2019-06-07] MEDS: ASPIRIN 81 MG TABLET, ENT COATED PO SCH (09:43)
[2019-06-07] MEDS: POTASSIUM CHLORIDE 10 MEQ TABLET.ER PO SCH (09:44)
[2019-06-07] MEDS: HYDROCHLOROTHIAZIDE 12.5 MG TABLET PO SCH (09:44)
[2019-06-07] MEDS ORDERED: ISOSORBIDE MONONITRATE 30 MG TAB.ER.24H PO SCH (10:00)
[2019-06-07] MEDS ORDERED: LISINOPRIL 10 MG TABLET PO SCH ×2 (10:00)
[2019-06-07] MEDS: NORMAL SALINE 1000 ML 1,000 ML IV PRN ×3 (12:32→22:23)
[2019-06-07] MEDS ORDERED: NORMAL SALINE 1000 ML 1,000 ML IV ONE (13:56)
--- NOTE | 2019-06-07 13:59 | Progress Note ---
Provider Note Provider Note: The paient is awaiting cholecystectomy.He had a coronary stent placed on after CABG in October. He has exhibited no evidence of acute coronary syndrome since his stent. Unfortunately the patient's medication list still listed lisinopril. Evidently his physician has told him to discontinue this medication. Therefore his blood pressure is low currently. He will get a liter of normal saline. Once his blood pressure is improved he is stable for his cholecystectomy and can proceed with the surgery.
--- NOTE | 2019-06-07 14:03 | PDOC PROGRESS REPORT ---
Subjective Progress Note for:: 06/07/19 Subjective:: Patient is comfortable, he reports mild right upper quadrant abdominal pain Reason For Visit: CHOLELITHIASIS/CHOLECYSTITIS,CORONARY ARTERY DISEA Physical Exam Vital Signs: Temp Pulse Resp BP Pulse Ox 98.7 F 67 17 84/45 L 94 06/07/19 11:19 06/07/19 11:19 06/07/19 11:19 06/07/19 13:57 06/07/19 11:19 Intake & Output 06/06/19 06/07/19 06/08/19 06:59 06:59 06:59 Intake Total 150 600 Output Total 0 Balance 150 600 Weight 83.8 kg General appearance: PRESENT: no acute distress, well-developed Respiratory exam: PRESENT: clear to auscultation betzaida Cardiovascular exam: PRESENT: RRR GI/Abdominal exam: PRESENT: hypoactive bowel sounds, soft, tenderness - Right upper quadrant abdominal pain Results Laboratory Results: 06/06/19 13:40 06/06/19 13:40 06/06/19 06/06/19 06/06/19 13:40 13:40 13:40 WBC 8.8 RBC 5.00 Hgb 13.6 Hct 40.8 MCV 82 MCH 27.1 MCHC 33.2 RDW 14.4 H Plt Count 227 Seg Neutrophils % 73.2 Sodium 138.9 Potassium 3.9 Chloride 98 Carbon Dioxide 27 Anion Gap 14 BUN 14 Creatinine 0.91 Est GFR ( Amer) > 60 Glucose 108 Calcium 9.8 Total Bilirubin 0.5 AST 29 Alkaline Phosphatase 62 C-Reactive Protein < 5.0 Total Protein 7.4 Albumin 4.2 Lipase 79.5 Urine Color Urine Appearance Urine pH Ur Specific [place] Urine Protein Urine Glucose (UA) Urine Ketones Urine Blood Urine Nitrite Ur Leukocyte Esterase Urine WBC (Auto) Urine RBC (Auto) 06/06/19 20:29 WBC RBC Hgb Hct MCV MCH MCHC RDW Plt Count Seg Neutrophils % Sodium Potassium Chloride Carbon Dioxide Anion Gap BUN Creatinine Est GFR ( Amer) Glucose Calcium Total Bilirubin AST Alkaline Phosphatase C-Reactive Protein Total Protein Albumin Lipase Urine Color YELLOW Urine Appearance CLEAR Urine pH 5.0 Ur Specific [place] 1.010 Urine Protein NEGATIVE Urine Glucose (UA) NEGATIVE Urine Ketones NEGATIVE Urine Blood SMALL H Urine Nitrite NEGATIVE Ur Leukocyte Esterase NEGATIVE Urine WBC (Auto) 0 Urine RBC (Auto) 1 12/06/06/19 06/06/19 13:40 13:40 18:35 Creatine Kinase 39 L CK-MB (CK-2) 0.54 Troponin I < 0.012 < 0.012 Impressions: Chest X-Ray 06/06/19 00:00 IMPRESSION: No evidence of acute cardiopulmonary process. Status post CABG. Abdomen Ultrasound 06/06/19 15:17 IMPRESSION: Cholelithiasis/biliary sludge without evidence of acute cholecystitis. Assessment & Plan - Diagnosis (2) Cholelithiasis Qualifiers: Cholelithiasis location: gallbladder Cholecystitis presence: without cholecystitis Biliary obstruction: without biliary obstruction Qualified Code(s): K80.20 - Calculus of gallbladder without cholecystitis without obstruction Is this a current diagnosis for this admission?: Yes - Time Time Spent with patient: 25-34 minutes - Plan Summary Plan Summary: Assessment: Symptomatic cholelithiasis Normal liver profile Physical exam significant for right upper quadrant abdominal pain Patient has a significant coronary artery disease history including CABG 9 months ago and a coronary artery stent 2 months ago He is currently on Plavix Plan: If the patient is cleared by the medical service, plan to perform laparoscopic cystectomy, possible open, possible cholangiogram this afternoon. Procedure, risks, benefits, complications, and alternatives explained to the patient and his family. Their questions were answered and he decided to proceed
[2019-06-07] MEDS ORDERED: CEFOXITIN 1 GM/D5W RTU 1 GM/50 ML RTUPB IV PRN (14:10)
[2019-06-07] MEDS ORDERED: CEFOXITIN INJ 1 GM VIAL IV ONE (16:00)
[2019-06-07] MEDS ORDERED: MORPHINE SULFATE 10 MG/ML INJ ONE ×2 (17:18→20:14)
[2019-06-07] MEDS ORDERED: MIDAZOLAM 2 MG/2 ML INJ ONE (17:18)
[2019-06-07] MEDS ORDERED: FENTANYL CITRATE INJ/PF 100 MCG/2 ML AMPUL ONE (17:18)
[2019-06-07] MEDS ORDERED: PROPOFOL INJ 200 MG/20 ML VIAL IV ONE (17:18)
[2019-06-07] MEDS: TAMSULOSIN HCL 0.4 MG CAP.SR.24H PO SCH (17:23)
[2019-06-07] MEDS ORDERED: BUPIVACAINE HCL 0.5 % INJ/PF 30 ML SDV ONE (17:46)
--- NOTE | 2019-06-07 17:59 | PDOC CONSULTATION ---
Consultation Consult Date: 06/09/19 Attending physician:: SYLVIA RUTH Provider Consulted: LENA CLARK History of Present Illness Admission Date/PCP: 06/06/19 18:42 CARIE HALL DO History of Present Illness: KAVITHA CULP JR is a 69 year old male Past medical history of coronary artery disease, acute myocardial infarction with subsequent CABG at [place] in October 2018, cardiac stenting April 11 at [facility], history of ankylosing spondylitis, hypertension, gastroesophageal flux disease, prostatic hyperplasia came to the hospital because epigastric pain was found to have cholelithiasis. He went for cholecystectomy. No chest pain. No shortness of breath. No orthopnea. Reasonably active person. Past Medical History Cardiac Medical History: Reports: Coronary Artery Disease, Hypertension Pulmonary Medical History: Denies: Asthma, Chronic Obstructive Pulmonary Disease (COPD) EENT Medical History: Denies: Cataracts, Eyes, Ears, Nose Neurological Medical History: Denies: Hemorrhagic CVA, Ischemic CVA, Multiple Sclerosis Endocrine Medical History: Denies: Diabetes Mellitus Type 2, Hypothyroidism Renal/ Medical History: Denies: Chronic Kidney Disease, Nephrolithiasis Malignancy Medical History: Reports: None GI Medical History: Reports: Gastroesophageal Reflux Disease Musculoskeltal Medical History: Reports: Arthritis, Other - Ankylosing spondylitis Skin Medical History: Denies: Eczema, Psoriasis Psychiatric Medical History: Denies: Alcohol Dependency, Dementia, Depression, General Anxiety Disorder, Substance Abuse, Tobacco Dependency Traumatic Medical History: Reports: None Hematology: Denies: Anemia, Bleeding Tendencies, Heparin Induced Thrombocytopenia Infectious Medical History: Reports: None Past Surgical History Past Surgical History: Reports: Coronary Artery Bypass Graft - October 2018, Coronary Stent - 3 stents placed on 04/11/19, Orthopedic Surgery - back Social History Lives with: Family Smoking Status: Former Smoker Electronic Cigarette use?: No Frequency of Alcohol Use: None Hx Recreational Drug Use: No Drugs: None Hx Prescription Drug Abuse: No - Advance Directive Resuscitation Status: Full Code Family History Family History: CAD, DM, Hypertension, Malignancy Parental Family History Reviewed: Yes Children Family History Reviewed: Yes Sibling(s) Family History Reviewed.: Yes Medication/Allergy Home Medications: Aspirin [Adult Low Dose Aspirin EC] 81 mg PO DAILY 06/06/19 Clopidogrel Bisulfate [Plavix 75 mg Tablet] 75 mg PO DAILY 06/06/19 Etanercept [Enbrel Sureclick] 50 mg SQ FR@1000 06/06/19 Hydrochlorothiazide [Hydrodiuril 12.5 mg Tablet] 12.5 mg PO DAILY 06/06/19 Hydrocodone Bit/Acetaminophen [Hydrocodon-Acetaminophn 10-325] 1 each PO Q12HP PRN 06/06/19 Isosorbide Mononitrate [Imdur 30 mg Tablet.er] 30 mg PO DAILY 06/06/19 Lisinopril [Prinivil 40 mg Tablet] 40 mg PO DAILY 06/06/19 Metoprolol Tartrate [Lopressor 25 mg Tablet] 25 mg PO Q12 06/06/19 Nitroglycerin [Nitrostat 0.4 mg (1/150 Gr) Tabs 25/Bottle] 1 tab SL Q5MP PRN 06/06/19 Omeprazole Magnesium [Prilosec Otc] 40 mg PO DAILY 06/06/19 Potassium Chloride [Klor-Con 10 Meq Tablet ER] 20 meq PO DAILY 06/06/19 Pravastatin Sodium [Pravachol] 40 mg PO DAILY 06/06/19 Tamsulosin HCl [Flomax] 0.4 mg PO DAILY 06/06/19 Trazodone HCl [Desyrel 50 mg Tablet] 50 mg PO QHS 06/06/19 Allergies/Adverse Reactions: No Known Allergies Allergy (Verified 10/16/18 10:32) Physical Exam Vital Signs: Temp Pulse Resp BP Pulse Ox 97.8 F 57 L 17 92/32 L 92 06/07/19 17:15 06/07/19 17:15 06/07/19 17:15 06/07/19 17:15 06/07/19 17:15 Intake & Output 06/06/19 06/07/19 06/08/19 06:59 06:59 06:59 Intake Total 150 773 Output Total 0 Balance 150 773 Weight 83.8 kg Results Laboratory Results: 06/06/19 13:40 06/06/19 13:40 06/06/19 20:29 Urine Color YELLOW Urine Appearance CLEAR Urine pH 5.0 Ur Specific [place] 1.010 Urine Protein NEGATIVE Urine Glucose (UA) NEGATIVE Urine Ketones NEGATIVE Urine Blood SMALL H Urine Nitrite NEGATIVE Ur Leukocyte Esterase NEGATIVE Urine WBC (Auto) 0 Urine RBC (Auto) 1 06/06/19 06/06/19 06/06/19 13:40 13:40 18:35 Creatine Kinase 39 L CK-MB (CK-2) 0.54 Troponin I < 0.012 < 0.012 Impressions: Chest X-Ray 06/06/19 00:00 IMPRESSION: No evidence of acute cardiopulmonary process. Status post CABG. Abdomen Ultrasound 06/06/19 15:17 IMPRESSION: Cholelithiasis/biliary sludge without evidence of acute cholecystitis. Assessment & Plan - Diagnosis (1) Coronary artery disease Qualifiers: Coronary Disease-Associated Artery/Lesion type: [place] artery [place] vs. transplanted heart: [place] heart Associated angina: without angina Qualified Code(s): I25.10 - Atherosclerotic heart disease of [place] coronary artery without angina pectoris Is this a current diagnosis for this admission?: Yes Plan: Continue current management. Restart home meds when possible. Restart dual antiplatelet therapy when possible. (2) Essential hypertension Is this a current diagnosis for this admission?: Yes Plan: Continue home meds.
[2019-06-07] MEDS ORDERED: BUPIVACAINE HCL 0.5 % INJ/PF 30 ML SDV INJ ONE (18:10)
[2019-06-07] MEDS ORDERED: FENTANYL CITRATE INJ/PF 100 MCG/2 ML AMPUL IV PRN ×3 (18:15)
[2019-06-07] MEDS ORDERED: MEPERIDINE HCL/PF INJ 25 MG/1 ML DISP.SYRIN IV PRN (18:15)
[2019-06-07] MEDS ORDERED: MORPHINE SULFATE 10 MG/ML INJ IV PRN (18:15)
[2019-06-07] MEDS ORDERED: DIPHENHYDRAMINE HCL 50 MG/ML VIAL IV PRN (18:15)
[2019-06-07] MEDS ORDERED: PROMETHAZINE HCL INJ 25 MG/1 ML VIAL IV PRN ×2 (18:15)
--- NOTE | 2019-06-07 20:25 | Operative Report ---
Operative Report DATE OF SURGERY: 06/07/19 PREOPERATIVE DIAGNOSIS: Somatic cholelithiasis POSTOPERATIVE DIAGNOSIS: Same OPERATION: Laparoscopic cholecystectomy SURGEON: EDY GUARDADO ANESTHESIA: Other - 20 mils 1% lidocaine TISSUE REMOVED OR ALTERED: Gallbladder COMPLICATIONS: None QUANTITATIVE BLOOD LOSS: 150 INTRAOPERATIVE FINDINGS: Large amount of adhesions between bowel and gallbladder. Moderate amount of diffuse oozing secondary to the use of Plavix PROCEDURE: The procedure was done in the operating room. The patient was placed in a supine position, general anesthesia induced by endotracheal intubation, the abdomen was prepped and draped in usual fashion. An incision was made just above the umbilicus with a #15 blade, the skin was tented with towel clips and a 5 mm port with Optiview adapter and scope was inserted through the abdominal wall into the peritoneal cavity. CO2 pneumoperitoneum was obtained, under direct visualization a 12 mm port was inserted in the epigastrium and to 5 mm ports were placed in the right lateral quadrant of the abdomen under direct vi sualization. The patient was placed in steep reverse Trendelenburg position, the right side was elevated, the gallbladder fundus was grasped and the gallbladder was elevated and retroflexed; the cystic neck was identified, grasped, and pulled anterior to the patient's right with exposure of the triangle of [place]. The dissection of the gallbladder revealed to be difficult due to the large amount of oozing from the gallbladder wall, gallbladder fossa, and divided adhesions between gallbladder and greater omentum. Due to the difficult visualization of the anatomy, a top to bottom dissection was began and by carefully dividing the attachments between gallbladder and liver mostly gallbladder was from the liver bed. The gallbladder was then grasped at the level of the fundus, retroflexed and the neck of the gallbladder was grasped anterior into the patient's right. Decreased review of safety was obtained by dividing the peritoneal attachments of the gallbladder body both medially and laterally with a hook cautery. When this was accomplished, the hook cautery dissection was continued toward the cystic neck. An opening was then obtained posterior to the cystic duct which was enlarged with a peanut dissector and with a right angle dissector. Once the critical view of safety was obtained, the cystic duct was carefully dissected with a hook cautery and a space was developed between the cystic duct and cystic artery with a right angle dissector. ] Both were then double clipped proximally and distally and divided with scissors. The gallbladder was dissected from the liver bed using hook cautery at high settings, and extracted from the peritoneal cavity with an Endobag through the epigastric port. The pneumoperitoneum was then re- established, the gallbladder fossa was examined and found to be free from active bleeding or bile staining. The right upper quadrant was then irrigated with approximately 3 L of normal saline until clear. A 19 mm [place] round Emeka drain was inserted through the epigastric port and extracted from the left upper quadrant abdominal port; it was placed in the gallbladder fossa under direct visualization and secured to the skin with a 2-0 nylon suture. The epigastric fascial defect was closed with a [id number] 0 Vicryl suture, placed with a fascia closure device under direct visualization, and left untied. After this was accomplished, gallbladder fossa was inspected, no active bleeding was noted, 10 mL of FloSeal from where applied to the gallbladder fossa followed by a large piece of Surgicel. All instruments were removed, the CO2 pneumoperitoneum was released, and all the ports were removed. The epigastric fascial defect was closed with the previously placed [id number] 0 Vicryl suture, all skin incisions were closed with a 4-0 PDS running subcuticular suture, and Dermabond was applied. The patient tolerated the procedure well, was extubated, and transferred to the recovery room in satisfactory conditions.
[2019-06-07] MEDS: FENTANYL CITRATE INJ/PF 100 MCG/2 ML AMPUL ONE ×2 (20:26→20:31)
[2019-06-07] MEDS ORDERED: ACETAMINOPHEN 1,000 MG/100 ML RTUPB IV ONE (20:40)
[2019-06-07] MEDS ORDERED: DOCUSATE SODIUM 100 MG CAPSULE PO SCH (21:00)
[2019-06-07] MEDS ORDERED: CEFOXITIN INJ 1 GM VIAL IV SCH (22:00)
[2019-06-07] MEDS: FAMOTIDINE INJ/PF 20 MG/2 ML SDV IV SCH (22:20)
[2019-06-07] MEDS: LORAZEPAM INJ 2 MG/1 ML VIAL IV PRN (22:20)
[2019-06-07] MEDS: ATORVASTATIN CALCIUM 40 MG TABLET PO SCH (22:20)
[2019-06-07] MEDS: TRAZODONE HCL 50 MG TABLET PO SCH (22:20)
[2019-06-07] MEDS: MORPHINE SULFATE 10 MG/ML INJ IV PRN (22:20)
[2019-06-07] MEDS: CEFOXITIN 1 GM/D5W RTU 1 GM/50 ML RTUPB IV SCH (22:21)
[2019-06-07 23:57] LABS: APPEARANCE,URINE CLEAR; BILIRUBIN,URINE NEGATIVE (NEGATIVE); COLOR,URINE YELLOW; GLUCOSE, URINE NEGATIVE (NEGATIVE); KETONES,URINE NEGATIVE (NEGATIVE); LEUKOCYTE ESTERASE,URINE NEGATIVE (NEGATIVE); NITRITE,URINE NEGATIVE (NEGATIVE); PROTEIN,URINE NEGATIVE (NEGATIVE); URINE SPECIFIC GRAVITY 1.012; UROBILINOGEN,URINE NEGATIVE mg/dL (<2.0)
[2019-06-08] MEDS: MORPHINE SULFATE 10 MG/ML INJ IV PRN ×2 (01:08→06:11)
[2019-06-08] MEDS: ONDANSETRON HCL INJ/PF 4 MG/2 ML SDV IV PRN ×2 (02:56→13:02)
[2019-06-08] MEDS: CEFOXITIN 1 GM/D5W RTU 1 GM/50 ML RTUPB IV SCH ×2 (06:11→13:02)
[2019-06-08] MEDS: PANTOPRAZOLE SODIUM 40 MG TABLET.DR PO SCH (06:12)
[2019-06-08 07:26] LABS: ABSOLUTE LYMPHOCYTES (AUTO) 1.3 10^3/uL (0.5-4.7); ABSOLUTE MONOCYTES (AUTO) 1.3 10^3/uL (0.1-1.4); ABSOLUTE NEUT (AUTO) 10.3 10^3/uL (1.7-8.2); HEMATOCRIT 37.1 % (37.9-51.0); HEMOGLOBIN 12.2 g/dL (13.5-17.0); LYMPHOCYTES % (AUTO) 9.8 % (13-45); MEAN CORPUSCULAR HEMOGLOBIN 26.9 pg (27.0-33.4); MEAN CORPUSCULAR HGB CONC 32.7 g/dL (32.0-36.0); MEAN CORPUSCULAR VOLUME 82 fl (80-97); MONOCYTES % (AUTO) 10.3 % (3-13); PLATELET COUNT 211 10^3/uL (150-450); RED BLOOD COUNT 4.52 10^6/uL (4.35-5.55); RED CELL DISTRIBUTION WIDTH 14.4 % (11.5-14.0); SEGMENTED NEUTROPHILS % (AUTO) 79.9 % (42-78); TOTAL CELLS COUNTED % (AUTO) 100 %; WHITE BLOOD COUNT 12.9 10^3/uL (4.0-10.5)
[2019-06-08 07:41] LABS: ALBUMIN 3.6 g/dL (3.5-5.0); ALKALINE PHOSPHATASE 49 U/L (38-126); ANION GAP 12 (5-19); ASPARTATE AMINO TRANSFERASE 31 U/L (17-59); BILIRUBIN,DIRECT 0.3 mg/dL (0.0-0.4); BILIRUBIN,TOTAL 0.9 mg/dL (0.2-1.3); BLOOD UREA NITROGEN 16 mg/dL (7-20); CALCIUM 8.2 mg/dL (8.4-10.2); CARBON DIOXIDE 28 mmol/L (22-30); CHLORIDE 96 mmol/L (98-107); GLUCOSE 138 mg/dL (75-110); POTASSIUM 4.2 mmol/L (3.6-5.0); TOTAL PROTEIN 6.1 g/dL (6.3-8.2)
[2019-06-08] MEDS: HYDROCHLOROTHIAZIDE 12.5 MG TABLET PO SCH (08:27)
[2019-06-08] MEDS: DOCUSATE SODIUM 100 MG CAPSULE PO SCH ×3 (10:13→18:26)
[2019-06-08] MEDS: ASPIRIN 81 MG TABLET, ENT COATED PO SCH (10:34)
[2019-06-08] MEDS: METOPROLOL TARTRATE 25 MG TABLET PO SCH (10:34)
[2019-06-08] MEDS: POTASSIUM CHLORIDE 10 MEQ TABLET.ER PO SCH (10:34)
[2019-06-08] MEDS: NORMAL SALINE 1000 ML 1,000 ML IV PRN ×2 (10:35→21:56)
[2019-06-08] MEDS: ISOSORBIDE MONONITRATE 30 MG TAB.ER.24H PO SCH (10:35)
[2019-06-08] MEDS: ENOXAPARIN SODIUM INJ 40 MG/0.4 ML DISP.SYRIN SUBCUT SCH (10:35)
[2019-06-08] MEDS: FAMOTIDINE INJ/PF 20 MG/2 ML SDV IV SCH ×2 (10:35→21:42)
[2019-06-08] MEDS ORDERED: GLUCAGON,HUMAN RECOMB 1 MG INJ SUBCUT PRN (13:30)
[2019-06-08] MEDS ORDERED: DEXTROSE 50%-WATER 25 GM/50 ML DISP.SYRIN IV PRN ×2 (13:30)
[2019-06-08] MEDS ORDERED: DEXTROSE 40% GEL 15 GM TUBE PO PRN ×2 (13:30)
--- NOTE | 2019-06-08 13:35 | PDOC PROGRESS REPORT ---
Subjective Progress Note for:: 06/08/19 Subjective:: The patient is complaining of pain localized in the right upper quadrant port insertion site and has nausea at this time Reason For Visit: CHOLELITHIASIS/CHOLECYSTITIS,CORONARY ARTERY DISEA Physical Exam Vital Signs: Temp Pulse Resp BP Pulse Ox 98.0 F 103 H 14 123/67 92 06/08/19 07:53 06/08/19 07:53 06/08/19 07:53 06/08/19 07:53 06/08/19 07:53 Intake & Output 06/07/19 06/08/19 06/09/19 06:59 06:59 06:59 Intake Total 150 4135 1000 Output Total 0 1655 Balance 150 2480 1000 Weight 83.8 kg 85 kg General appearance: PRESENT: no acute distress, obese, other - Slightly sleepy Respiratory exam: PRESENT: clear to auscultation betzaida Cardiovascular exam: PRESENT: RRR GI/Abdominal exam: PRESENT: distended - Slightly distended, normal bowel sounds, soft, tenderness - In the right upper quadrant at the port insertion site Neurological exam: PRESENT: alert, awake, oriented to person, oriented to place Results Laboratory Results: 06/08/19 07:11 06/08/19 07:11 06/07/19 06/08/19 06/08/19 23:35 07:11 07:11 WBC 12.9 H RBC 4.52 Hgb 12.2 L Hct 37.1 L MCV 82 MCH 26.9 L MCHC 32.7 RDW 14.4 H Plt Count 211 Seg Neutrophils % 79.9 H Sodium 135.8 L Potassium 4.2 Chloride 96 L Carbon Dioxide 28 Anion Gap 12 BUN 16 Creatinine 0.87 Est GFR ( Amer) > 60 Glucose 138 H Calcium 8.2 L Total Bilirubin 0.9 AST 31 Alkaline Phosphatase 49 Total Protein 6.1 L Albumin 3.6 Urine Color YELLOW Urine Appearance CLEAR Urine pH 5.0 Ur Specific [place] 1.012 Urine Protein NEGATIVE Urine Glucose (UA) NEGATIVE Urine Ketones NEGATIVE Urine Blood NEGATIVE Urine Nitrite NEGATIVE Ur Leukocyte Esterase NEGATIVE Urine WBC (Auto) 1 Urine RBC (Auto) 1 06/06/19 06/06/19 06/06/19 13:40 13:40 18:35 Creatine Kinase 39 L CK-MB (CK-2) 0.54 Troponin I < 0.012 < 0.012 Impressions: Chest X-Ray 06/06/19 00:00 IMPRESSION: No evidence of acute cardiopulmonary process. Status post CABG. Abdomen Ultrasound 06/06/19 15:17 IMPRESSION: Cholelithiasis/biliary sludge without evidence of acute cholec ystitis. Assessment & Plan - Diagnosis (2) Cholelithiasis Qualifiers: Cholelithiasis location: gallbladder Cholecystitis presence: without cholecystitis Biliary obstruction: without biliary obstruction Qualified Code(s): K80.20 - Calculus of gallbladder without cholecystitis without obstruction Is this a current diagnosis for this admission?: Yes - Time Time Spent with patient: 35 or more minutes - Plan Summary Plan Summary: Assessment: Postoperative day #1 following laparoscopic cholecystectomy for symptomatic cholelithiasis Vital signs stable, patient afebrile Good urine output Drain output about 150 mL for the past 24 hours Blood work within normal limits with normal liver profile The patient also complaining of nausea, shortness of breath, and right upper quadrant tenderness Physical exam shows her abdomen slightly distended and tenderness in the right upper quadrant area port insertion site Plan: Keep n.p.o. Continue IV fluids Check chest x-ray PA lateral
--- NOTE | 2019-06-08 13:54 | RADIOLOGY REPORT (SQ) ---
EXAM DESCRIPTION: CHEST 2 VIEWS COMPLETED DATE/TIME: 06/08/2019 1:46 pm REASON FOR STUDY: shortness of breath COMPARISON: 06/06/2019 TECHNIQUE: Frontal and lateral radiographic views of the chest acquired. NUMBER OF VIEWS: Two view. LIMITATIONS: None. FINDINGS: LUNGS AND PLEURA: Bibasilar diminished aeration compared to prior. Subsegmental atelectas is suspected predominantly although there is patchy airspace disease possibly reflecting left basilar pneumonia. No pneumothorax. MEDIASTINUM AND HILAR STRUCTURES: Stable contours. HEART AND VASCULAR STRUCTURES: Cardiomegaly. BONES: No acute findings. HARDWARE: None in the chest. OTHER: No other significant finding. IMPRESSION: Basilar volume loss with potential left lower lobe pneumonia. TECHNICAL DOCUMENTATION: JOB ID: [id number] [employer]- All Rights Reserved Reading location - IP/workstation name: [email or web address]
[2019-06-08] MEDS ORDERED: FENTANYL CITRATE INJ/PF 100 MCG/2 ML AMPUL IV ONE (15:35)
[2019-06-08] MEDS ORDERED: METOCLOPRAMIDE HCL INJ/PF 10 MG/2 ML SDV IV ONE (15:36)
--- NOTE | 2019-06-08 15:38 | PDOC PROGRESS REPORT ---
Subjective Progress Note for:: 06/08/19 Subjective:: The patient is feeling poorly today. He is having significant discomfort on his right side at the site of the surgical drain. He feels bloated and states that he has not passed any gas. He does have a sickly appearance. He also states that it hurts when he takes a deep breath. Again this is in the right upper quadrant area. Reason For Visit: CHOLELITHIASIS/CHOLECYSTITIS,CORONARY ARTERY DISEA Physical Exam Vital Signs: Temp Pulse Resp BP Pulse Ox 98.0 F 103 H 14 123/67 92 06/08/19 07:53 06/08/19 07:53 06/08/19 07:53 06/08/19 07:53 06/08/19 07:53 Intake & Output 06/07/19 06/08/19 06/09/19 06:59 06:59 06:59 Intake Total 150 4135 1000 Output Total 0 1655 Balance 150 2480 1000 Weight 83.8 kg 85 kg General appearance: PRESENT: cooperative, mild distress, well-developed Head exam: PRESENT: atraumatic, normocephalic Respiratory exam: PRESENT: rales - Bilaterally, symmetrical. ABSENT: prolonged expiratory phas, rhonchi, tachypnea, wheezes Cardiovascular exam: PRESENT: RRR, +S1, +S2 GI/Abdominal exam: PRESENT: normal bowel sounds, soft, tenderness - Right side at surgical drain site Neurological exam: PRESENT: alert, awake, oriented to person, oriented to place, oriented to time, oriented to situation, CN II-XII grossly intact Psychiatric exam: PRESENT: depressed - Depressed sickly affect. ABSENT: agitated, anxious Results Laboratory Results: 06/08/19 07:11 06/08/19 07:11 06/07/19 06/08/19 06/08/19 23:35 07:11 07:11 WBC 12.9 H RBC 4.52 Hgb 12.2 L Hct 37.1 L MCV 82 MCH 26.9 L MCHC 32.7 RDW 14.4 H Plt Count 211 Seg Neutrophils % 79.9 H Sodium 135.8 L Potassium 4.2 Chloride 96 L Carbon Dioxide 28 Anion Gap 12 BUN 16 Creatinine 0.87 Est GFR ( Amer) > 60 Glucose 138 H Calcium 8.2 L Total Bilirubin 0.9 AST 31 Alkaline Phosphatase 49 Total Protein 6.1 L Albumin 3.6 Urine Color YELLOW Urine Appearance CLEAR Urine pH 5.0 Ur Specific [place] 1.012 Urine Protein NEGATIVE Urine Glucose (UA) NEGATIVE Urine Ketones NEGATIVE Urine Blood NEGATIVE Urine Nitrite NEGATIVE Ur Leukocyte Esterase NEGATIVE Urine WBC (Auto) 1 Urine RBC (Auto) 1 06/06/19 06/06/19 06/06/19 13:40 13:40 18:35 Creatine Kinase 39 L CK-MB (CK-2) 0.54 Troponin I < 0.012 < 0.012 Impressions: Abdomen Ultrasound 06/06/19 15:17 IMPRESSION: Cholelithiasis/biliary sludge without evidence of acute cholecystitis. Chest X-Ray 06/08/19 00:00 IMPRESSION: Basilar volume loss with potential left lower lobe pneumonia. Assessment and Plan - Diagnosis (1) Right upper quadrant abdominal pain with calculus of gallbladder present on ultrasound Is this a current diagnosis for this admission?: Yes Plan: 06/06/2019-patient presented with abdominal pain, nausea and vomiting. 3.6 cm gallstone identified by ultrasound. Surgery is consulting. Plan is for cholecystectomy. Dilaudid for pain. 06/07/2019-tolerating clear liquid diet. No more vomiting. The plan is for cholecystectomy tomorrow. 06/08/2019-the patient underwent successful cholecyst ectomy yesterday. Surgery reports using as he was still likely experiencing antiplatelet activity of Plavix. The pain is localized to the surgical drain site. I will expand his analgesia. (2) Cholelithiasis Qualifiers: Cholelithiasis location: gallbladder Cholecystitis presence: without cholec ystitis Biliary obstruction: without biliary obstruction Qualified Code(s): K80.20 - Calculus of gallbladder without cholecystitis without obstruction Is this a current diagnosis for this admission?: Yes Plan: 06/06/2019-planned for cholecystectomy. 06/07/2019-plan as above. Should maintain low-fat diet for cardiac reasons as well as status post cholecystectomy. 06/08/2019-status post cholecystectomy (3) Vomiting Qualifiers: Vomiting type: unspecified Vomiting Intractability: non-intractable Nause a presence: with nausea Qualified Code(s): R11.2 - Nausea with vomiting, unspecified Is this a current diagnosis for this admission?: Yes Plan: 06/06/2019-secondary to cholelithiasis. Resolved with pain medications and antiemetics. 06/07/2019-resolved at this time 06/08/2019-resolved. There is a suspected left lower lobe pneumonia. This could have been due to aspiration from his many episodes of emesis prior to his hospital admission. (4) Coronary artery disease Qualifiers: Coronary Disease-Associated Artery/Lesion type: [place] artery [place] vs. transplanted heart: [place] heart Associated angina: without angina Qualified Code(s): I25.10 - Atherosclerotic heart disease of [place] coronary artery without angina pectoris Is this a current diagnosis for this admission?: Yes Plan: 06/06/2019-patient had bypass surgery after myocardial infarction in October. He had a coronary artery stent placed in March. He has been stable and asymptomatic. He is slightly higher risk for surgery however with the recent stenting and cardiac catheterization he has no acute coronary symptoms at this time. We will continue his current medications (hydrochlorothiazide, Imdur, lisinopril, metoprolol and potassium) with the exception of Plavix. The patient is cleared for surgery. 06/07/2019-still holding Plavix. No symptoms of acute coronary syndrome at this time. Continue current management. 06/08/2019-no acute coronary syndrome symptoms at this time. Continue to monitor. We will hold Plavix 1 more day due to the oozing of blood noted during surgery. (5) Essential hypertension Is this a current diagnosis for this admission?: Yes Plan: 06/06/2019-as noted above we will continue his current medication regimen. His blood pressure was elevated and so I will give his hydrochlorothiazide and a small dose of lisinopril at this time and monitor him on telemetry. We will adjust his medications based on his vital signs. 06/07/2019-continue current medications. Monitor for hypo-or hypertension and adjust medications accordingly. There are parameters on antihypertensive medications. 06/08/2019-with new information regarding the patient's management of his medications his blood pressure is much better. I will add back small doses of medication if required. (6) Gastroesophageal reflux Qualifiers: Esophagitis presence: without esophagitis Qualified Code(s): K21.9 - [place]-esophageal reflux disease without esophagitis Is this a current diagnosis for this admission?: Yes Plan: 06/06/2019-substitute pantoprazole for his omeprazole. 06/07/2019-continue proton pump inhibitor. 06/08/2019-continue Protonix (7) Benign prostatic hyperplasia with nocturia Is this a current diagnosis for this admission?: Yes Plan: 06/06/2019-continue Flomax 0.4 mg daily. 06/07/2019-continue Flomax 06/08/2019-Flomax (8) Ankylosing spondylitis Qualifiers: Ankylosing spondylitis location: unspecified site of spine Qualified Code(s): M45.9 - Ankylosing spondylitis of unspecified sites in spine Is this a current diagnosis for this admission?: Yes Plan: 06/06/2019-the patient takes Enbrel 50 mg by subcutaneous injection weekly on . Hopefully he will be home by Monday. As needed pain medications will be available. 06/07/2019-resume Enbrel after discharge. Continue current pain management. We should avoid NSAIDs for cardiac reasons. 06/08/2019-the ankylosing spondylitis is causing significant pain. Part of this is related to the bed and his immobility. I did increase his pain medications and have added Lidoderm patches. His states that he has used these in the past. (9) Chronic pain Qualifiers: Chronic pain type: chronic pain syndrome Qualified Code(s): G89.4 - Chronic pain syndrome Is this a current diagnosis for this admission?: Yes Plan: 06/06/2019-the patient has chronic back pain. As needed analgesia will be available. This can be given for his abdominal pain or back pain. [id number] this morning. Continue as needed medication. 06/08/2019-expand analgesia. - Plan Summary Summary: 06/06/2019-patient presents with large (greater than 3 cm) gallstone. There does not appear to be any cholecystitis or obstruction. The gallstone was likely temporarily lodged as reflected by the patient's abdominal pain, nausea and vomiting. Dr. Chacko has seen the patient. We will stop his Plavix. We will keep him on a clear liquid diet. We will continue his medication regimen with the exception of Plavix. He will likely have a cholecystectomy on Monday or Monday. Because there is no evidence of acute cholecystitis I will not start antibiotics at this time. - Time Time Spent with patient: 15-24 minutes Medications reviewed and adjusted accordingly: Yes Anticipated discharge: Home
[2019-06-08] MEDS: ACETAMINOPHEN 1,000 MG/100 ML RTUPB IV SCH ×2 (16:06→21:42)
[2019-06-08] MEDS: TAMSULOSIN HCL 0.4 MG CAP.SR.24H PO SCH (18:26)
[2019-06-08] MEDS: AMPICILLIN SODIUM/SULBACTAM NA 1.5 GM in NORMAL SALINE 50 ML IV SCH ×2 (18:26→23:54)
[2019-06-08] MEDS: TRAZODONE HCL 50 MG TABLET PO SCH (21:42)
[2019-06-08] MEDS: ATORVASTATIN CALCIUM 40 MG TABLET PO SCH (21:42)
[2019-06-08] MEDS: LORAZEPAM INJ 2 MG/1 ML VIAL IV PRN (21:51)
[2019-06-08] MEDS ORDERED: LISINOPRIL 10 MG TABLET PO SCH (22:00)
[2019-06-09] MEDS: ACETAMINOPHEN 1,000 MG/100 ML RTUPB IV SCH ×4 (04:02→22:22)
[2019-06-09] MEDS: AMPICILLIN SODIUM/SULBACTAM NA 1.5 GM in NORMAL SALINE 50 ML IV SCH ×4 (06:01→23:43)
[2019-06-09] MEDS: PANTOPRAZOLE SODIUM 40 MG TABLET.DR PO SCH (06:01)
[2019-06-09 06:24] LABS: ABSOLUTE LYMPHOCYTES (AUTO) 1.2 10^3/uL (0.5-4.7); ABSOLUTE MONOCYTES (AUTO) 1.3 10^3/uL (0.1-1.4); ABSOLUTE NEUT (AUTO) 8.3 10^3/uL (1.7-8.2); BASOPHILS % (AUTO) 0.2 % (0-2); EOSINOPHILS % (AUTO) 0.3 % (0-6); HEMATOCRIT 33.9 % (37.9-51.0); HEMOGLOBIN 11.3 g/dL (13.5-17.0); MEAN CORPUSCULAR HEMOGLOBIN 27.3 pg (27.0-33.4); MEAN CORPUSCULAR HGB CONC 33.3 g/dL (32.0-36.0); MEAN CORPUSCULAR VOLUME 82 fl (80-97); MONOCYTES % (AUTO) 11.7 % (3-13); PLATELET COUNT 216 10^3/uL (150-450); RED BLOOD COUNT 4.13 10^6/uL (4.35-5.55); RED CELL DISTRIBUTION WIDTH 14.1 % (11.5-14.0); SEGMENTED NEUTROPHILS % (AUTO) 76.8 % (42-78); TOTAL CELLS COUNTED % (AUTO) 100 %; WHITE BLOOD COUNT 10.8 10^3/uL (4.0-10.5)
[2019-06-09 06:42] LABS: ALBUMIN 3.2 g/dL (3.5-5.0); ALKALINE PHOSPHATASE 52 U/L (38-126); ANION GAP 8 (5-19); ASPARTATE AMINO TRANSFERASE 23 U/L (17-59); BILIRUBIN,DIRECT 0.1 mg/dL (0.0-0.4); BILIRUBIN,TOTAL 0.9 mg/dL (0.2-1.3); BLOOD UREA NITROGEN 9 mg/dL (7-20); CALCIUM 8.7 mg/dL (8.4-10.2); CARBON DIOXIDE 31 mmol/L (22-30); CHLORIDE 99 mmol/L (98-107); GLUCOSE 120 mg/dL (75-110); POTASSIUM 3.8 mmol/L (3.6-5.0); TOTAL PROTEIN 5.9 g/dL (6.3-8.2)
--- NOTE | 2019-06-09 07:49 | PDOC PROGRESS REPORT ---
Subjective Progress Note for:: 06/09/19 Subjective:: The patient feels much better today, no shortness of breath, the patient reports minimal right-sided abdominal pain at the port site Reason For Visit: CHOLELITHIASIS/CHOLECYSTITIS,CORONARY ARTERY DISEA Physical Exam Vital Signs: Temp Pulse Resp BP Pulse Ox 99.8 F 78 17 136/72 H 94 06/08/19 15:35 06/09/19 02:00 06/08/19 15:35 06/08/19 15:35 06/08/19 15:35 Intake & Output 06/08/19 06/09/19 06/10/19 06:59 06:59 06:59 Intake Total 4135 3380 50 Output Total 1655 1980 Balance 2480 1400 50 Weight 85 kg 85 kg General appearance: PRESENT: no acute distress Respiratory exam: PRESENT: clear to auscultation betzaida Cardiovascular exam: PRESENT: RRR GI/Abdominal exam: PRESENT: distended, hypoactive bowel sounds, soft - Minimal tenderness in the right upper quadrant at the port insertion site, no peritoneal signs, all incisions are clean, dry, and intact; right lateral quadrant abdominal drain filled with small amount of bilious material Results Laboratory Results: 06/09/19 06:10 06/09/19 06:10 06/08/19 06/09/19 06/09/19 07:11 06:10 06:10 WBC 10.8 H RBC 4.13 L Hgb 11.3 L Hct 33.9 L MCV 82 MCH 27.3 MCHC 33.3 RDW 14.1 H Plt Count 216 Seg Neutrophils % 76.8 Sodium 135.8 L 138.0 Potassium 4.2 3.8 Chloride 96 L 99 Carbon Dioxide 28 31 H Anion Gap 12 8 BUN 16 9 Creatinine 0.87 0.74 Est GFR ( Amer) > 60 > 60 Glucose 138 H 120 H Calcium 8.2 L 8.7 Total Bilirubin 0.9 0.9 AST 31 23 Alkaline Phosphatase 49 52 Total Protein 6.1 L 5.9 L Albumin 3.6 3.2 L 06/06/19 06/06/19 06/06/19 13:40 13:40 18:35 Creatine Kinase 39 L CK-MB (CK-2) 0.54 Troponin I < 0.012 < 0.012 Impressions: Abdomen Ultrasound 06/06/19 15:17 IMPRESSION: Cholelithiasis/biliary sludge without evidence of acute cholecystitis. Chest X-Ray 06/08/19 00:00 IMPRESSION: Basilar volume loss with potential left lower lobe pneumonia. Assessment & Plan - Diagnosis (2) Cholelithiasis Qualifiers: Cholelithiasis location: gallbladder Cholecystitis presence: without ch olecystitis Biliary obstruction: without biliary obstruction Qualified Code(s): K80.20 - Calculus of gallbladder without cholecystitis without obs truction Is this a current diagnosis for this admission?: Yes - Time Time Spent with patient: 25-34 minutes - Plan Summary Plan Summary: Assessment: Postoperative day #2 following laparoscopic cholecystectomy for symptomatic cholelithiasis Vital signs stable, patient afebrile Good urine output Output from TORRES drain is bilious decreasing amount approximately 80 mL for the past 24 hours (most likely, it is bile leaking from the gallbladder bed) CBC and CMP within normal limits The patient feels much better today with no shortness of breath and minimal right upper quadrant port site pain Chest x-ray done yesterday reveals a left lobar pneumonia, most likely preoperative the patient had multiple episodes of vomiting at home prior to coming to the hospital; Patient started on Unasyn by the hospitalist service to treat pneumonia Plan: Advance diet to full liquid diet Out of bed ambulation hourly Use incentive spirometer hourly HIDA scan to evaluate to the bile ducts
[2019-06-09] MEDS ORDERED: DEXTROSE 50%-WATER 25 GM/50 ML DISP.SYRIN IV PRN ×2 (07:58)
[2019-06-09] MEDS ORDERED: DEXTROSE 40% GEL 15 GM TUBE PO PRN ×2 (07:58)
[2019-06-09] MEDS ORDERED: GLUCAGON,HUMAN RECOMB 1 MG INJ SUBCUT PRN (07:58)
[2019-06-09] MEDS: HYDROCODONE/ACETAMINOPHEN 10-325 MG TABLET PO PRN ×3 (08:57→22:20)
[2019-06-09] MEDS: HYDROCHLOROTHIAZIDE 12.5 MG TABLET PO SCH (08:57)
[2019-06-09] MEDS: DOCUSATE SODIUM 100 MG CAPSULE PO SCH ×2 (11:17→17:56)
[2019-06-09] MEDS: ASPIRIN 81 MG TABLET, ENT COATED PO SCH (11:17)
[2019-06-09] MEDS: ISOSORBIDE MONONITRATE 30 MG TAB.ER.24H PO SCH (11:17)
[2019-06-09] MEDS: POTASSIUM CHLORIDE 10 MEQ TABLET.ER PO SCH (11:18)
[2019-06-09] MEDS: LIDOCAINE 5% (700 MG) TRANSDERMAL ADH..PATCH TP SCH (11:18)
[2019-06-09] MEDS: METOPROLOL TARTRATE 25 MG TABLET PO SCH (11:18)
[2019-06-09] MEDS: FAMOTIDINE 20 MG TABLET PO SCH ×2 (11:18→22:20)
[2019-06-09] MEDS: ENOXAPARIN SODIUM INJ 40 MG/0.4 ML DISP.SYRIN SUBCUT SCH (11:19)
--- NOTE | 2019-06-09 11:51 | PDOC PROGRESS REPORT ---
Subjective Progress Note for:: 06/09/19 Subjective:: Resting comfortably in bed. Abdomen still slightly bloated. TORRES drain remains in place. Patient reports passing some gas. He is drinking Sprite and informs me that he will be advanced to a full liquid diet. Reason For Visit: CHOLELITHIASIS/CHOLECYSTITIS,CORONARY ARTERY DISEA Physical Exam Vital Signs: Temp Pulse Resp BP Pulse Ox 98.2 F 72 16 130/55 H 97 06/09/19 07:39 06/09/19 07:39 06/09/19 07:39 06/09/19 07:39 06/09/19 07:39 Intake & Output 06/08/19 06/09/19 06/10/19 06:59 06:59 06:59 Intake Total 4135 3380 150 Output Total 1655 1980 Balance 2480 1400 150 Weight 85 kg 85 kg General appearance: PRESENT: cooperative, mild distress, well-developed Head exam: PRESENT: atraumatic, normocephalic Respiratory exam: PRESENT: clear to auscultation betzaida, symmetrical, unlabored. ABSENT: rales, rhonchi, tachypnea, wheezes Cardiovascular exam: PRESENT: RRR, +S1, +S2, systolic murmur GI/Abdominal exam: PRESENT: diminished bowel sounds, distended, soft, tenderness Rectal exam: PRESENT: deferred Extremities exam: ABSENT: pedal edema Musculoskeletal exam: PRESENT: ambulatory, full ROM, normal inspection. ABSENT: deformity Neurological exam: PRESENT: alert, awake, oriented to person, oriented to place, oriented to time, oriented to situation, CN II-XII grossly intact Psychiatric exam: PRESENT: flat affect. ABSENT: agitated, anxious Results Laboratory Results: 06/09/19 06:10 06/09/19 06:10 06/09/19 06/09/19 06:10 06:10 WBC 10.8 H RBC 4.13 L Hgb 11.3 L Hct 33.9 L MCV 82 MCH 27.3 MCHC 33.3 RDW 14.1 H Plt Count 216 Seg Neutrophils % 76.8 Sodium 138.0 Potassium 3.8 Chloride 99 Carbon Dioxide 31 H Anion Gap 8 BUN 9 Creatinine 0.74 Est GFR ( Amer) > 60 Glucose 120 H Calcium 8.7 Total Bilirubin 0.9 AST 23 Alkaline Phosphatase 52 Total Protein 5.9 L Albumin 3.2 L 06/06/19 06/06/19 06/06/19 13:40 13:40 18:35 Creatine Kinase 39 L CK-MB (CK-2) 0.54 Troponin I < 0.012 < 0.012 Impressions: Abdomen Ultrasound 06/06/19 15:17 IMPRESSION: Cholelithiasis/biliary sludge without evidence of acute cholecystitis. Chest X-Ray 06/08/19 00:00 IMPRESSION: Basilar volume loss with potential left lower lobe pneumonia. Assessment and Plan - Diagnosis (1) Right upper quadrant abdominal pain with calculus of gallbladder present on ultrasound Is this a current diagnosis for this admission?: Yes Plan: 06/06/2019-patient presented with abdominal pain, nausea and vomiting. 3.6 cm gallstone identified by ultrasound. Surgery is consulting. Plan is for cholecystectomy. Dilaudid for pain. 06/07/2019-tolerating clear liquid diet. No more vomiting. The plan is for cholecystectomy tomorrow. 06/08/2019-the patient underwent successful cholecyst ectomy yesterday. Surgery reports using as he was still likely experiencing antiplatelet activity of Plavix. The pain is localized to the surgical drain site. I will expand his analgesia. 06/09/2019-status post cholecystectomy. Surgical drain still in place. Surgery will be advancing diet. (2) Cholelithiasis Qualifiers: Cholelithiasis location: gallbladder Cholecystitis presence: without cholecystitis Biliary obstruction: without biliary obstruction Qualified Code(s): K80.20 - Calculus of gallbladder without cholecystitis without obstruction Is this a current diagnosis for this admission?: Yes Plan: 06/06/2019-planned for cholecystectomy. 06/07/2019-plan as above. Should maintain low-fat diet for cardiac reasons as well as status post cholecystectomy. 06/08/2019-status post cholecystectomy (3) Vomiting Qualifiers: Vomiting type: unspecified Vomiting Intractability: non-intractable Nausea presence: with nausea Qualified Code(s): R11.2 - Nausea with vomiting, unspecified Is this a current diagnosis for this admission?: Yes Plan: 06/06/2019-secondary to cholelithiasis. Resolved with pain medications and antiemetics. 06/07/2019-resolved at this time 06/08/2019-resolved. There is a suspected left lower lobe pneumonia. This could have been due to aspiration from his many episodes of emesis prior to his hospital admission. 06/09/2019-vomiting has resolved (4) Coronary artery disease Qualifiers: Coronary Disease-Associated Artery/Lesion type: [place] artery [place] vs. transplanted heart: [place] heart Associated angina: without angina Qualified Code(s): I25.10 - Atherosclerotic heart disease of [place] coronary artery without angina pectoris Is this a current diagnosis for this admission?: Yes Plan: 06/06/2019-patient had bypass surgery after myocardial infarction in October. He had a coronary artery stent placed in March. He has been stable and asymptomatic. He is slightly higher risk for surgery however with the recent stenting and cardiac catheterization he has no acute coronary symptoms at this time. We will continue his current medications (hydrochlorothiazide, Imdur, li sinopril, metoprolol and potassium) with the exception of Plavix. The patient is cleared for surgery. 06/07/2019-still holding Plavix. No symptoms of acute coronary syndrome at this time. Continue current management. 06/08/2019-no acute coronary syndrome symptoms at this time. Continue to monit or. We will hold Plavix 1 more day due to the oozing of blood noted during surgery. 06/09/2019-stable. I would start the patient back on his Plavix today or tomorrow. (5) Essential hypertension Is this a current diagnosis for this admission?: Yes Plan: 06/06/2019-as noted above we will continue his current medication regimen. His blood pressure was elevated and so I will give his hydrochlorothiazide and a small dose of lisinopril at this time and monitor him on telemetry. We will adjust his medications based on his vital signs. 06/07/2019-continue current medications. Monitor for hypo-or hypertension and adjust medications accordingly. There are parameters on antihypertensive medications. 06/08/2019-with new information regarding the patient's management of his medications his blood pressure is much better. I will add back small doses of medication if required. 06/09/2019-the medications have been adjusted based on new information from the family. Despite these adjustments his blood pressure does tend towards the low side. We may need to adjust again. (6) Gastroesophageal reflux Qualifiers: Esophagitis presence: without esophagitis Qualified Code(s): K21.9 - Gastro-esophageal reflux disease without esophagitis Is this a current diagnosis for this admission?: Yes Plan: 06/06/2019-substitute pantoprazole for his omeprazole. 06/07/2019-continue proton pump inhibitor. 06/08/2019-continue Protonix (7) Benign prostatic hyperplasia with nocturia Is this a current diagnosis for this admission?: Yes Plan: 06/06/2019-continue Flomax 0.4 mg daily. 06/07/2019-continue Flomax 06/08/2019-Flomax 06/09/2019-as above. No reports of symptoms at this time. (8) Ankylosing spondylitis Qualifiers: Ankylosing spondylitis location: unspecified site of spine Qualified Code(s): M45.9 - Ankylosing spondylitis of unspecified sites in spine Is this a current diagnosis for this admission?: Yes Plan: 06/06/2019-the patient takes Enbrel 50 mg by subcutaneous injection weekly on Mondays. Hopefully he will be home by Monday. As needed pain medications will be available. 06/07/2019-resume Enbrel after discharge. Continue current pain management. We should avoid NSAIDs for cardiac reasons. 06/08/2019-the ankylosing spondylitis is causing significant pain. Part of this is related to the bed and his immobility. I did increase his pain medications and have added Lidoderm patches. His states that he has used these in the past. 06/09/2019-still with great difficulty managing the pain from the ankylosing spondylitis. Some of this is related to his decreased activity while hospit alized. So far the addition of the Lidoderm patches has not provided significant relief. (9) Chronic pain Qualifiers: Chronic pain type: chronic pain syndrome Qualified Code(s): G89.4 - Chronic pain syndrome Is this a current diagnosis for this admission?: Yes Plan: 06/06/2019-the patient has chronic back pain. As needed analgesia will be available. This can be given for his abdominal pain or back pain. 06/[id number] this morning. Continue as needed medication. 06/08/2019-expand analgesia. 06/09/2019-continue current regimen (10) Pneumonia Qualifiers: Pneumonia type: aspiration pneumonia Aspiration pneumonia type: due to vomit Laterality: left Lung location: lower lobe of lung Qualified Code(s): J69.0 - Pneumonitis due to inhalation of food and vomit Is this a current diagnosis for this admission?: Yes Plan: 06/08/2019-there is a suspected pneumonia in the left lower lobe. The patient does exhibit an elevated white blood cell count. A very reasonable explanation would be aspiration during 1 of his multiple episodes of emesis prior to the hospitalization. I have changed his antibiotics to Unasyn as this will cover gram-positive, gram-negative and some anaerobic organisms. Continue to follow. 06/09/2019-the patient feels much better. His breathing is comfortable. He is on room air. Clinically he sounds better. He should take the full prescribed course of antibiotic therapy for his pneumonia. - Plan Summary Summary: 06/06/2019-patient presents with large (greater than 3 cm) gallstone. There does not appear to be any cholecystitis or obstruction. The gallstone was likely temporarily lodged as reflected by the patient's abdominal pain, nausea and vomiting. Dr. Chacko has seen the patient. We will stop his Plavix. We will keep him on a clear liquid diet. We will continue his medication regimen with the exception of Plavix. He will likely have a cholecystectomy on Monday or Monday. Because there is no evidence of acute cholecystitis I will not start antibiotics at this time. - Time Time Spent with patient: 15-24 minutes Medications reviewed and adjusted accordingly: Yes Anticipated discharge: Home
--- NOTE | 2019-06-09 14:21 | RADIOLOGY REPORT (SQ) ---
EXAM DESCRIPTION: NM HIDA SCAN COMPLETED DATE/TIME: 06/09/2019 2:06 pm REASON FOR STUDY: s/p lap catina PDD#2 bile in intraabdominal drain COMPARISON: None. RADIONUCLIDE AND DOSE: DOSAGE RADIONUCLIDE: 5.37 millicuries Tc99m Mebrofenin. DOSAGE MORPHINE: Not required. The route of agent administration: Intravenous TECHNIQUE: Serial imaging right upper quadrant up to 60 minutes following injection of radionuclide. Patient imaged AP and Right Lateral. LIMITATIONS: None. FINDINGS: LIVER: Normal visualization without areas of photopenia. INTRA-HEPATIC BILE DUCTS: Temporal visualization normal. No dilatation. COMMON BILE DUCT: Normal without dilatation or delayed visualization. GALLBLADDER: Surgically absent. No abnormal accumulations of radiopharmaceutical to suggest bile sylvia k. OTHER: Normal progression of activity throughout bowel with clearance of activity in the liver and bi le ducts. IMPRESSION: Negative for bile leak status post cholecystectomy. TECHNICAL DOCUMENTATION: JOB ID: [id number] [employer]- All Rights Reserved Reading location - IP/workstation name: [email or web address]
[2019-06-09] MEDS: TAMSULOSIN HCL 0.4 MG CAP.SR.24H PO SCH (17:56)
[2019-06-09] MEDS: NORMAL SALINE 1000 ML 1,000 ML IV PRN (17:59)
[2019-06-09] MEDS ORDERED: MAGNESIUM CITRATE 296 ML BOTTLE PO ONE (18:00)
[2019-06-09] MEDS: ONDANSETRON HCL INJ/PF 4 MG/2 ML SDV IV PRN (19:15)
[2019-06-09] MEDS: ATORVASTATIN CALCIUM 40 MG TABLET PO SCH (22:20)
[2019-06-09] MEDS: TRAZODONE HCL 50 MG TABLET PO SCH (22:20)
[2019-06-09] MEDS: LORAZEPAM INJ 2 MG/1 ML VIAL IV PRN (22:29)
[2019-06-09] MEDS ORDERED: GLYCERIN (ADULT) SUPP.RECT PR ONE ×2 (23:30→23:33)
[2019-06-10] MEDS: ACETAMINOPHEN 1,000 MG/100 ML RTUPB IV SCH ×2 (04:18→09:00)
[2019-06-10] MEDS: PANTOPRAZOLE SODIUM 40 MG TABLET.DR PO SCH (05:41)
[2019-06-10] MEDS: AMPICILLIN SODIUM/SULBACTAM NA 1.5 GM in NORMAL SALINE 50 ML IV SCH (05:42)
[2019-06-10 06:02] LABS: ABSOLUTE EOSINOPHILS # (AUTO) 0.1 10^3/uL (0.0-0.6); ABSOLUTE LYMPHOCYTES (AUTO) 1.7 10^3/uL (0.5-4.7); ABSOLUTE MONOCYTES (AUTO) 0.8 10^3/uL (0.1-1.4); ABSOLUTE NEUT (AUTO) 4.6 10^3/uL (1.7-8.2); BASOPHILS % (AUTO) 0.5 % (0-2); EOSINOPHILS % (AUTO) 0.9 % (0-6); HEMATOCRIT 34.2 % (37.9-51.0); HEMOGLOBIN 11.4 g/dL (13.5-17.0); LYMPHOCYTES % (AUTO) 23.7 % (13-45); MEAN CORPUSCULAR HEMOGLOBIN 27.3 pg (27.0-33.4); MEAN CORPUSCULAR HGB CONC 33.2 g/dL (32.0-36.0); MEAN CORPUSCULAR VOLUME 82 fl (80-97); MONOCYTES % (AUTO) 10.7 % (3-13); PLATELET COUNT 256 10^3/uL (150-450); RED BLOOD COUNT 4.16 10^6/uL (4.35-5.55); RED CELL DISTRIBUTION WIDTH 14.3 % (11.5-14.0); SEGMENTED NEUTROPHILS % (AUTO) 64.2 % (42-78); TOTAL CELLS COUNTED % (AUTO) 100 %; WHITE BLOOD COUNT 7.2 10^3/uL (4.0-10.5)
[2019-06-10 06:17] LABS: ALBUMIN 3.2 g/dL (3.5-5.0); ALKALINE PHOSPHATASE 57 U/L (38-126); ANION GAP 10 (5-19); ASPARTATE AMINO TRANSFERASE 26 U/L (17-59); BILIRUBIN,DIRECT 0.3 mg/dL (0.0-0.4); BILIRUBIN,TOTAL 0.6 mg/dL (0.2-1.3); BLOOD UREA NITROGEN 11 mg/dL (7-20); CALCIUM 8.7 mg/dL (8.4-10.2); CARBON DIOXIDE 31 mmol/L (22-30); CHLORIDE 98 mmol/L (98-107); GLUCOSE 90 mg/dL (75-110); POTASSIUM 3.9 mmol/L (3.6-5.0); TOTAL PROTEIN 6.2 g/dL (6.3-8.2)
[2019-06-10] MEDS: FAMOTIDINE 20 MG TABLET PO SCH (09:03)
[2019-06-10] MEDS: METOPROLOL TARTRATE 25 MG TABLET PO SCH (09:03)
[2019-06-10] MEDS: POTASSIUM CHLORIDE 10 MEQ TABLET.ER PO SCH (09:03)
[2019-06-10] MEDS: HYDROCHLOROTHIAZIDE 12.5 MG TABLET PO SCH (09:03)
[2019-06-10] MEDS: DOCUSATE SODIUM 100 MG CAPSULE PO SCH (09:04)
[2019-06-10] MEDS: ASPIRIN 81 MG TABLET, ENT COATED PO SCH (09:04)
[2019-06-10] MEDS: ENOXAPARIN SODIUM INJ 40 MG/0.4 ML DISP.SYRIN SUBCUT SCH (09:04)
[2019-06-10] MEDS: ISOSORBIDE MONONITRATE 30 MG TAB.ER.24H PO SCH (09:04)
[2019-06-10] MEDS: NORMAL SALINE 1000 ML 1,000 ML IV PRN (09:05)
[2019-06-10] MEDS: LIDOCAINE 5% (700 MG) TRANSDERMAL ADH..PATCH TP SCH (09:05)
--- NOTE | 2019-06-10 12:03 | PDOC PROGRESS REPORT ---
Subjective Progress Note for:: 06/10/19 Reason For Visit: CHOLELITHIASIS/CHOLECYSTITIS,CORONARY ARTERY DISEA Feeling well, no complaints, tolerating a diet. Wants drain out. Physical Exam Vital Signs: Temp Pulse Resp BP Pulse Ox 98.9 F 83 18 102/43 L 94 06/10/19 07:55 06/10/19 07:55 06/10/19 07:55 06/10/19 07:55 06/10/19 07:55 Intake & Output 06/09/19 06/10/19 06/11/19 06:59 06:59 06:59 Intake Total 3380 3290 Output Total 1980 200 10 Balance 1400 3090 -10 Weight 85 kg 84.7 kg General appearance: PRESENT: no acute distress GI/Abdominal exam: PRESENT: other - Abdomen soft, operative incision healing satisfactory. Abdominal drain removed uneventfully. Results Laboratory Results: 06/10/19 04:39 06/10/19 04:39 06/10/19 06/10/19 04:39 04:39 WBC 7.2 RBC 4.16 L Hgb 11.4 L Hct 34.2 L MCV 82 MCH 27.3 MCHC 33.2 RDW 14.3 H Plt Count 256 Seg Neutrophils % 64.2 Sodium 139.4 Potassium 3.9 Chloride 98 Carbon Dioxide 31 H Anion Gap 10 BUN 11 Creatinine 0.82 Est GFR ( Amer) > 60 Glucose 90 Calcium 8.7 Total Bilirubin 0.6 AST 26 Alkaline Phosphatase 57 Total Protein 6.2 L Albumin 3.2 L 06/06/19 06/06/19 06/06/19 13:40 13:40 18:35 Creatine Kinase 39 L CK-MB (CK-2) 0.54 Troponin I < 0.012 < 0.012 Impressions: Abdomen Ultrasound 06/06/19 15:17 IMPRESSION: Cholelithiasis/biliary sludge without evidence of acute cholecystitis. Chest X-Ray 06/08/19 00:00 IMPRESSION: Basilar volume loss with potential left lower lobe pneumonia. Hepatobiliary Scan Nuclear Medicine 06/09/19 00:00 IMPRESSION: Negative for bile leak status post cholecystectomy. Assessment & Plan - Diagnosis (1) Cholelithiasis Qualifiers: Cholelithiasis location: gallbladder Cholecystitis presence: without cholecystitis Biliary obstruction: without biliary obstruction Qualified Code(s): K80.20 - Calculus of gallbladder without cholecystitis without obstruction Is this a current diagnosis for this admission?: Yes Plan: Impression: Patient is doing well 3 days status post laparoscopic cholecystectomy drain placement. Drain removed. No complications. Tolerating a diet. Recommendations: 1. Patient may be discharged home from a surgical standpoint; This was discussed with Hetal Hogue 2. Patient follow-up with [facility] in 1 to 2 weeks; he may take a Tylenol Motrin as needed pain. 3. Surgery will sign off at this time; reconsult if clinically indicated. (2) Anticoagulation adequate Is this a current diagnosis for this admission?: Yes (3) Ankylosing spondylitis Qualifiers: Ankylosing spondylitis location: unspecified site of spine Qualified Code(s): M45.9 - Ankylosing spondylitis of unspecified sites in spine Is this a current diagnosis for this admission?: Yes (4) Chronic pain Qualifiers: Chronic pain type: chronic pain syndrome Qualified Code(s): G89.4 - Chronic pain syndrome Is this a current diagnosis for this admission?: Yes (5) Coronary artery disease Qualifiers: Coronary Disease-Associated Artery/Lesion type: [place] artery [place] vs. transplanted heart: [place] heart Associated angina: without angina Qualified Code(s): I25.10 - Atherosclerotic heart disease of [place] coronary artery without angina pectoris Is this a current diagnosis for this admission?: Yes (6) Hypertension Qualifiers: Hypertension type: essential hypertension Qualified Code(s): I10 - Essential (primary) hypertension Is this a current diagnosis for this admission?: Yes (7) Essential hypertension Is this a current diagnosis for this admission?: Yes (8) Osteoarthritis Is this a current diagnosis for this admission?: Yes - Time Time Spent with patient: 15-24 minutes Medications reviewed and adjusted accordingly: Yes Anticipated discharge: Home
[2019-06-10 13:58] VITALS: BP 92/32
[2019-06-10] MEDS ORDERED: AMOXICILLIN TR/POT CLAVULANATE 500-125 MG TAB PO SCH (14:00)
--- NOTE | 2019-06-10 15:22 | PDOC DISCHARGE SUMMARY ---
Impression - Admit/DC Date/PCP Admission Date/Primary Care Provider: 06/06/19 18:42 CARIE HALL DO Discharge Date: 06/10/19 - Discharge Diagnosis (1) Ankylosing spondylitis Is this a current diagnosis for this admission?: Yes (2) Benign prostatic hyperplasia with nocturia Is this a current diagnosis for this admission?: Yes (3) Cholelithiasis Is this a current diagnosis for this admission?: Yes (4) Chronic pain Is this a current diagnosis for this admission?: Yes (5) Gastroesophageal reflux Is this a current diagnosis for this admission?: Yes (6) Pneumonia Is this a current diagnosis for this admission?: Yes (7) Right upper quadrant abdominal pain with calculus of gallbladder present on ultrasound Is this a current diagnosis for this admission?: Yes (8) Vomiting Is this a current diagnosis for this admission?: Yes (9) Essential hypertension Is this a current diagnosis for this admission?: Yes - Additional Information Resuscitation Status: Full Code Discharge Diet: Other (Comments) Discharge Activity: Activity As Tolerated, Balance Activity w/Rest Referrals: CARIE HALL DO [Primary Care Provider] - (Follow up within 1 week.) Prescriptions: Amox Tr/Potassium Clavulanate [Augmentin "500" Tablet] 1 tab PO Q8 #18 tablet Home Medications: Aspirin [Adult Low Dose Aspirin EC] 81 mg PO DAILY 06/06/19 Clopidogrel Bisulfate [Plavix 75 mg Tablet] 75 mg PO DAILY 06/06/19 Etanercept [Enbrel Sureclick] 50 mg SQ FR@1000 06/06/19 Hydrochlorothiazide [Hydrodiuril 12.5 mg Tablet] 12.5 mg PO DAILY 06/06/19 Hydrocodone Bit/Acetaminophen [Hydrocodon-Acetaminophn 10-325] 1 each PO Q12HP PRN 06/06/19 Isosorbide Mononitrate [Imdur 30 mg Tablet.er] 30 mg PO DAILY 06/06/19 Lisinopril [Prinivil 40 mg Tablet] 40 mg PO DAILY 06/06/19 Metoprolol Tartrate [Lopressor 25 mg Tablet] 25 mg PO Q12 06/06/19 Nitroglycerin [Nitrostat 0.4 mg (1/150 Gr) Tabs 25/Bottle] 1 tab SL Q5MP PRN 06/06/19 Omeprazole Magnesium [Prilosec Otc] 40 mg PO DAILY 06/06/19 Potassium Chloride [Klor-Con 10 Meq Tablet ER] 20 meq PO DAILY 06/06/19 Pravastatin Sodium [Pravachol] 40 mg PO DAILY 06/06/19 Tamsulosin HCl [Flomax] 0.4 mg PO DAILY 06/06/19 Trazodone HCl [Desyrel 50 mg Tablet] 50 mg PO QHS 06/06/19 Amox Tr/Potassium Clavulanate [Augmentin "500" Tablet] 1 tab PO Q8 #18 tablet 06/10/19 History of Present Illiness History of Present Illness: KAVITHA CULP JR is a 69 year old male Hospital Course Hospital Course: The patient was admitted to [facility] on continuous cardiac telemetry. The surgical services were consulted; underwent laparoscopic cholecystectomy with TORRES drain placements on 06/07/2019. Follow-up HIDA scan is normal. Drain output has slowly decreased and has been discontinued today. Spoke with Dr. Chacko who advises the patient is now stable for discharged home. Patient reports that his pain is adequately controlled without need for PRN analgesic medications now that the drain has been removed. He is tolerating a regular diet. He has been passing gas and had a small bowel movement yesterday. Postoperatively the patient experienced elevated WBCs mild dyspnea, and cough. Chest x-ray demonstrated possible left lower lobe consolidation. Antibiotics were adjusted to Unasyn for better coverage of a likely aspiration pneumonia related to the patient's numerous episodes of emesis. Patient experienced rapid clinical improvement; he now has clear lung sounds and is ambulatory on room air without difficulty. He is transitioned to p.o. Augmentin to complete full course of antibiotic post discharge. The patient's aspirin and Plavix were placed on hold preoperatively; he is instructed to resume tomorrow. The patient's remaining chronic medical conditions were stable throughout his admission. The patient is discharged home in stable condition. He is advised to follow-up with his primary care provider within 1 week. He is instructed to eat a bland, low residue diet, advance slowly as tolerated. Drink plenty of fluids. Complete course of Augmentin for aspiration pneumonia. Resume his normal outpatient medication regiment tomorrow. Return to the emergency department as needed for concerning symptoms. Physical Exam Vital Signs: Temp Pulse Resp BP Pulse Ox 97.8 F 57 L 18 92/32 L 97 06/10/19 13:56 06/10/19 13:56 06/10/19 13:56 06/10/19 13:56 06/10/19 13:56 Intake & Output 06/09/19 06/10/19 06/11/19 06:59 06:59 06:59 Intake Total 3380 3290 118 Output Total 1980 200 10 Balance 1400 3090 108 Weight 85 kg 84.7 kg General appearance: PRESENT: no acute distress, cooperative, well-developed, well-nourished - Overweight Head exam: PRESENT: atraumatic, normocephalic Eye exam: PRESENT: conjunctiva pink, EOMI, PERRLA. ABSENT: scleral icterus Ear exam: PRESENT: normal external ear exam Mouth exam: PRESENT: moist, tongue midline Neck exam: ABSENT: carotid bruit, JVD, lymphadenopathy, thyromegaly Respiratory exam: PRESENT: clear to auscultation betzaida, symmetrical, unlabored. ABSENT: rales, rhonchi, wheezes Cardiovascular exam: PRESENT: RRR. ABSENT: diastolic murmur, rubs, systolic murmur Pulses: PRESENT: normal dorsalis pedis pul Vascular exam: PRESENT: normal capillary refill GI/Abdominal exam: PRESENT: normal bowel sounds, soft. ABSENT: distended, guarding, mass, organolmegaly, rebound, tenderness Rectal exam: PRESENT: deferred Extremities exam: PRESENT: full ROM. ABSENT: calf tenderness, clubbing, pedal edema Musculoskeletal exam: PRESENT: ambulatory Neurological exam: PRESENT: alert, awake, oriented to person, oriented to place, oriented to time, oriented to situation, CN II-XII grossly intact. ABSENT: motor sensory deficit Psychiatric exam: PRESENT: appropriate affect, normal mood. ABSENT: homicidal ideation, suicidal ideation Skin exam: PRESENT: dry, intact, warm. ABSENT: cyanosis, rash Results Laboratory Results: WBC 7.2 10^3/uL (4.0-10.5) 06/10/19 04:39 RBC 4.16 10^6/uL (4.35-5.55) L 06/10/19 04:39 Hgb 11.4 g/dL (13.5-17.0) L 06/10/19 04:39 Hct 34.2 % (37.9-51.0) L 06/10/19 04:39 MCV 82 fl (80-97) 06/10/19 04:39 MCH 27.3 pg (27.0-33.4) 06/10/19 04:39 MCHC 33.2 g/dL (32.0-36.0) 06/10/19 04:39 RDW 14.3 % (11.5-14.0) H 06/10/19 04:39 Plt Count 256 10^3/uL (150-450) 06/10/19 04:39 Lymph % (Auto) 23.7 % (13-45) 06/10/19 04:39 Meigs % (Auto) 10.7 % (3-13) 06/10/19 04:39 Eos % (Auto) 0.9 % (0-6) 06/10/19 04:39 Baso % (Auto) 0.5 % (0-2) 06/10/19 04:39 Absolute Neuts (auto) 4.6 10^3/uL (1.7-8.2) 06/10/19 04:39 Absolute Lymphs (auto) 1.7 10^3/uL (0.5-4.7) 06/10/19 04:39 Absolute Monos (auto) 0.8 10^3/uL (0.1-1.4) 06/10/19 04:39 Absolute Eos (auto) 0.1 10^3/uL (0.0-0.6) 06/10/19 04:39 Absolute Basos (auto) 0.0 10^3/uL (0.0-0.2) 06/10/19 04:39 Seg Neutrophils % 64.2 % (42-78) 06/10/19 04:39 Sodium 139.4 mmol/L (137-145) 06/10/19 04:39 Potassium 3.9 mmol/L (3.6-5.0) 06/10/19 04:39 Chloride 98 mmol/L (98-107) 06/10/19 04:39 Carbon Dioxide 31 mmol/L (22-30) H 06/10/19 04:39 Anion Gap 10 (5-19) 06/10/19 04:39 BUN 11 mg/dL (7-20) 06/10/19 04:39 Creatinine 0.82 mg/dL (0.52-1.25) 06/10/19 04:39 Est GFR ( Amer) > 60 (>60) 06/10/19 04:39 Est GFR (MDRD) Non-Af > 60 (>60) 06/10/19 04:39 Glucose 90 mg/dL (75-110) 06/10/19 04:39 POC Glucose 125 mg/dL (70-110) H 06/09/19 15:30 Calcium 8.7 mg/dL (8.4-10.2) 06/10/19 04:39 Total Bilirubin 0.6 mg/dL (0.2-1.3) 06/10/19 04:39 Direct Bilirubin 0.3 mg/dL (0.0-0.4) 06/10/19 04:39 Neonat Total Bilirubin Not Reportable 06/10/19 04:39 Neonat Direct Bilirubin Not Reportable 06/10/19 04:39 Neonat Indirect Bili Not Reportable 06/10/19 04:39 AST 26 U/L (17-59) 06/10/19 04:39 ALT 23 U/L (<50) 06/10/19 04:39 Alkaline Phosphatase 57 U/L (38-126) 06/10/19 04:39 Creatine Kinase 39 U/L (55-170) L 06/06/19 13:40 CK-MB (CK-2) 0.54 ng/mL (<4.55) 06/06/19 13:40 Troponin I < 0.012 ng/mL 06/06/19 18:35 C-Reactive Protein < 5.0 mg/L (<10.0) 06/06/19 13:40 Total Protein 6.2 g/dL (6.3-8.2) L 06/10/19 04:39 Albumin 3.2 g/dL (3.5-5.0) L 06/10/19 04:39 Lipase 79.5 U/L (23-300) 06/06/19 13:40 Urine Color YELLOW 06/07/19 23:35 Urine Appearance CLEAR 06/07/19 23:35 Urine pH 5.0 (5.0-9.0) 06/07/19 23:35 Ur Specific [place] 1.012 06/07/19 23:35 Urine Protein NEGATIVE mg/dL (NEGATIVE) 06/07/19 23:35 Urine Glucose (UA) NEGATIVE mg/dL (NEGATIVE) 06/07/19 23:35 Urine Ketones NEGATIVE mg/dL (NEGATIVE) 06/07/19 23:35 Urine Blood NEGATIVE (NEGATIVE) 06/07/19 23:35 Urine Nitrite NEGATIVE (NEGATIVE) 06/07/19 23:35 Urine Bilirubin NEGATIVE (NEGATIVE) 06/07/19 23:35 Urine Urobilinogen NEGATIVE mg/dL (<2.0) 06/07/19 23:35 Ur Leukocyte Esterase NEGATIVE (NEGATIVE) 06/07/19 23:35 Urine WBC (Auto) 1 /HPF 06/07/19 23:35 Urine RBC (Auto) 1 /HPF 06/07/19 23:35 U Hyaline Cast (Auto) 1 /LPF 06/07/19 23:35 Squamous Epi Cells Auto <1 /HPF 06/07/19 23:35 Urine Mucus (Auto) RARE /LPF 06/07/19 23:35 Urine Ascorbic Acid NEGATIVE (NEGATIVE) 06/07/19 23:35 06/06/19 06/06/19 13:40 18:35 CK-MB (CK-2) 0.54 Troponin I < 0.012 < 0.012 Impressions: Chest X-Ray 06/06/19 00:00 IMPRESSION: No evidence of acute cardiopulmonary process. Status post CABG. Abdomen Ultrasound 06/06/19 15:17 IMPRESSION: Cholelithiasis/biliary sludge without evidence of acute cholecystitis. Chest X-Ray 06/08/19 00:00 IMPRESSION: Basilar volume loss with potential left lower lobe pneumonia. Hepatobiliary Scan Nuclear Medicine 06/09/19 00:00 IMPRESSION: Negative for bile leak status post cholecystectomy. Plan Plan of Treatment: The patient is discharged home in stable condition. He is advised to follow-up with his primary care provider within 1 week. He is instructed to complete his course of Augmentin for treatment of pneumonia. Eat a bland diet, then slowly as tolerated. Drink plenty of fluids. Return to the emergency department as needed for concerning symptoms. Time Spent: Greater than 30 Minutes Stroke Is this a Stroke Patient?: No Acute Heart Failure - Is this a Heart Failure Patient?: No
[2019-06-10] MEDS ORDERED: PHARMACY COMMUNICATION ORDER MC SCH (22:00)
== END 2019-06-10 14:02 | disposition home or self-care (01) | DRG 417 ==
LOC: ER 14:10 → EH 18:42 → 3S 21:22
PROVIDERS: ADMIT Hospitalist; ATTEND Hospitalist
PROC: 0FT44ZZ Resection of Gallbladder, Percutaneous Endoscopic Approach (ICD-10-PCS; principal; 2019-06-07 16:00)
DX: K80.20 Calculus of gallbladder without cholecystitis without obstruction (principal); J69.0 Pneumonitis due to inhalation of food and vomit; I10 Essential (primary) hypertension; I25.10 Atherosclerotic heart disease of native coronary artery without angina pectoris; N40.1 Benign prostatic hyperplasia with lower urinary tract symptoms; R35.1 Nocturia; K21.9 Gastro-esophageal reflux disease without esophagitis; G89.4 Chronic pain syndrome; M45.9 Ankylosing spondylitis of unspecified sites in spine; Z79.01 Long term (current) use of anticoagulants; Z79.82 Long term (current) use of aspirin; Z79.899 Other long term (current) drug therapy; Z95.1 Presence of aortocoronary bypass graft
CPT/HCPCS: 36415; 71045; 71046; 76705; 78226; 790; 80053; 81001; 82550; 82553; 82962; 83690; 84484; 85025; 86140; 88304; 93005; 93010; 94799; 96374; 96375; 96376; 99285; A9537; J0131; J0295; J0330; J0694; J1170; J1644; J1650; J2060; J2250; J2270; J2405; J2704; J2765; J3010; J3490; J7030; Q9969; S0028